=== PATIENT | male | born 1960 | race Hispanic/Latino ===

== ENCOUNTER 2020-03-30 09:57 | Inpatient (IN) | payer MEDICARE, OTHER ==
[~2020-03-30 09:57] MED LIST: Iopamidol-370 76% 500 ML 1 ML ONE
[2020-03-30] MEDS ORDERED: Ondansetron PF 4 MG/2 ML Vial ONE (10:01)
--- NOTE | 2020-03-30 10:13 | CT ---
CT HEAD WITHOUT IV CONTRAST COMPARISON: 05/21/2019 HISTORY: Level 1 stroke. Slurred speech. TECHNIQUE: Axial CT imaging at 5 mm intervals from vertex through skull base without contrast FINDINGS: Left frontal calvarial craniotomy defect is again seen, and there is a stable area of encephalomalaci a involving the left frontal lobe with ex vacuo dilatation of the anterior body of the left lateral ventricle. There is decreased attenuation in the periventricular white matter which is nonspecific bu t likely reflective of chronic small vessel ischemic changes. There is mild cerebral volume loss. The ventricular system is normal in size, shape, and position for the degree of sulcal atrophy. There is no evidence of an acute cortical infarction, hemorrhage, mass effect, or midline shift. Skull base has a normal CT appearance. Visualized paranasal sinuses are clear. Osseous structures appear intact. Stable small partially calcified nodule in the scalp soft tissues p osterior lateral region at the vertex is again noted. [place] image demonstrates postoperative changes of the upper cervical spine. CT head is stable compared to prior exam. IMPRESSION: 1. No acute intracranial abnormality demonstrated. 2. Stable chronic changes. 3. Above findings discussed with Dr. Abarca in the emergency department on 03/30/2020 at 1008 hours.
[2020-03-30 10:21] LABS: #Basophils 0.1 thou/uL (0.0-0.2); #Eosinphils 0.5 thou/uL (0.0-0.7); #Lymphocytes 2.5 thou/uL (1.20-3.40); #Monocytes 0.5 thou/uL (0.11-0.59); #Neutrophils 4.9 thou/uL (1.40-6.50); %Basophils 0.9 % (0.0-1.0); %Eosinophils 5.9 % (0.0-10.0); %Lymphocytes 29.9 % (21.0-51.0); %Monocytes 5.5 % (0.0-10.0); %Neutrophils 57.8 % (42.0-75.0); Hemoglobin 12.2 g/dL (14.0-18.0); Mean Corpuscular HGB CONC 32.7 g/dL (32.0-36.0); Mean Corpuscular Volume 94.6 fL (78.0-98.0); Mean Platelet Volume 7.7 fL (7.4-10.4); Platelet Count 319 thou/uL (130-400); RBC Distribution Width 12.7 % (11.5-14.5); Red Blood Cell (RBC) Count 3.95 mill/uL (4.70-6.10); White Blood Cell (WBC) Count 8.4 thou/uL (4.8-10.8)
[2020-03-30] MEDS ORDERED: Promethazine HCl 25 MG/ML VIAL ONE (10:27)
[2020-03-30 10:33] LABS: INR-International Normal Ratio 1.2; PTT 38.7 sec (22.9-36.1); Prothrombin Time 15.3 sec (12.0-14.7)
[2020-03-30 10:36] LABS: ALT (SGPT) 14 U/L (8-55); AST (SGOT) 15 U/L (5-34); Albumin 3.9 g/dL (3.4-4.8); Alkaline Phosphatase 66 U/L (40-110); Anion Gap 13 mmol/L (10-20); BUN (Urea Nitrogen) 33 mg/dL (8.4-25.7); Bilirubin, Total 0.3 mg/dL (0.2-1.2); Calc. Creatinine Clearance 0 mL/min (70-130); Calcium 8.9 mg/dL (7.8-10.44); Carbon Dioxide 25 mmol/L (23-31); Chloride 101 mmol/L (98-107); Estimated GFR-MDRD 73; Globulin 3.6 g/dL (2.4-3.5); Glucose 112 mg/dL (80-115); Potassium 3.8 mmol/L (3.5-5.1); Protein, Total 7.5 g/dL (5.8-8.1); Sodium 135 mmol/L (136-145)
--- NOTE | 2020-03-30 10:41 | CT ---
EXAM: CT angiogram head and neck with IV contrast and 3-D reconstructions PROVIDED CLINICAL HISTORY: Slurred speech COMPARISON: None FINDINGS: There is a normal arrangement of great vessels at the aortic arch which are patent. The innominate ar cornelio and bilateral subclavian arteries as well as bilateral common carotid arteries are patent. The bilateral internal carotid arteries are patent. There is a prominent kink involving the cervical righ t internal carotid artery. The bilateral vertebral arteries appear grossly patent; although, there is limited evaluation due to artifact at the level of the cervical vertebral arteries. The more dista l vertebral arteries are patent. The basilar artery and each posterior cerebral artery are patent. There is a type origin of the left posterior cerebral artery. The bilateral anterior cerebral as well as middle cerebral arteries are patent. There does appear to be mild atherosclerotic irregularity in the region of the distal M1 segment right middle cerebral artery. No significant focal stenosis or branch occlusion is seen. No intracranial aneurysm is appreciated on this exam. The heart is mildly enlarged. There is atelectasis seen in the upper lung zones bilaterally. The thyroid gland, bilateral parotid glands and submandibular glands demonstrate a normal CT appearan ce. There are postoperative changes at the C3-4 level with anterior plate and screws present. There is ca lcification of the anterior longitudinal ligament of the cervical as well as the thoracic spine. IMPRESSION: 1. No focal stenosis or branch occlusion is seen involving the [place] of [place] or vertebrobasilar sy stem. 2. Patent bilateral internal carotid arteries. There is a prominent kink present within the cervical right ICA. 3. Mild cardiomegaly. 4. Above findings discussed with Dr. Abarca in the emergency department on 03/30/2020 at 1036 hours.
--- NOTE | 2020-03-30 10:45 | RAD ---
XR Chest 1 View Portable HISTORY: Slurred speech COMPARISON: 05/21/2019 FINDINGS: The heart size is at upper limits of normal. The lungs are well expanded without focal area s of consolidation, pneumothorax or pleural effusions. IMPRESSION: No radiographic evidence of acute cardiopulmonary process.
[2020-03-30 10:57] LABS: Acetaminophen Less than 6.0 mcg/mL (10.0-30.0); Alcohol Less than 10 mg/dL (Less than 10); Salicylate Less than 8.0 mg/dL (15.0-30.0)
[2020-03-30 11:18] LABS: Bilirubin Negative (Negative); Blood, Urine Negative (Negative); Clarity Clear (Clear); Glucose, Urine (Dipstick) Normal (Negative); Ketone, Urine Negative (Negative); Leukocyte Negative Leu/uL (Negative); Nitrite Negative (Negative); Protein, Urine (Dipstick) 10 mg/dL (Neg-Trace); Specific Gravity, Urine 1.021 (1.002-1.036); Urobilinogen Normal mg/dL (Less than 2); pH, Urine 6.5 (5.0-9.0)
[2020-03-30 11:42] LABS: Amphetamine Not Detected (NotDetected); Barbiturates Screen Not Detected (NotDetected); Benzodiazepine Screen Not Detected (NotDetected); Cocaine Metabolite Screen Not Detected (NotDetected); Medtox Control Line Valid? VALID (VALID); Medtox Reader # READER 1; Methadone Not Detected (NotDetected); Methamphetamine Not Detected (NotDetected); Opiate Screen Not Detected (NotDetected); Oxycodone Screen Not Detected (NotDetected); Phencyclidine (PCP) Not Detected (NotDetected); THC/Cannabinoid Screen Not Detected (NotDetected); Tricyclic Screen Not Detected (NotDetected)
--- NOTE | 2020-03-30 12:10 | PDOC.HHP ---
Hospitalist HPI - History of Present Illness Facial weakness History of Present Illness: This is a 60-year-old male patient with a history of unspecified thrombosis on Eliquis, hypothyroidism, stroke, brain abscess paraplegic and nonambulatory, who was noted in his [place] [facility] facility this morning to have facial weakness and slurred speech. According to ambulance note, the patient was alert and oriented x4 with no slurred speech or tremors. At presentation he was also thought to be alert and oriented x4 however had nausea and vomiting and was given ondansetron to no avail and subsequently given Phenergan. At the time of my evaluation he was pretty drowsy he would wake up when when called and then go back to sleep. He however follows some commands. At presentation his blood pressure was 191/105, pulse 88, respiratory 21 saturation 96 on room air initial temperature was His labs showed negative drug screen, unremarkable UA, BMP showed mild hyponatremia of 135, chest x-ray showed no radiographical evidence of acute cardiopulmonary process, CT scan of the head showed no acute intracranial process, stable chronic changes and CT angiogram showed no intracranial aneurysms artery stenosis. However a prominent kink involving the right internal carotid was noted. At presentation he received Phenergan and Zofran for nausea and vomiting. 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 - Family History Other Family History: Lives at [facility] - Social History Living Situation: Shelter Other Social History: Unable to obtain - Exam General - other findings: Patient in bed, very drowsy at arousable. Eye - other findings: Pupils symmetrical reactive to light. Heart: RRR, no murmur, no rubs Respiratory: no wheezes, no rales, no ronchi Extremities: no cyanosis, no clubbing, no edema Extremities - other findings: Does not move lower limbs on instruction. Moves upper limbs Neurological - other findings: Unable to comprehensively assess given patient's altered state Hospitalist Results - Labs Result Diagrams: 03/30/20 10:01 03/30/20 10:01 Lab results: WBC 8.4 thou/uL (4.8-10.8) 03/30/20 10:01 Hgb 12.2 g/dL (14.0-18.0) L 03/30/20 10:01 Hct 37.4 % (42.0-52.0) L 03/30/20 10:01 MCV 94.6 fL (78.0-98.0) 03/30/20 10:01 Plt Count 319 thou/uL (130-400) 03/30/20 10:01 Neutrophils % 57.8 % (42.0-75.0) 03/30/20 10:01 Sodium 135 mmol/L (136-145) L 03/30/20 10:01 Potassium 3.8 mmol/L (3.5-5.1) 03/30/20 10:01 Chloride 101 mmol/L (98-107) 03/30/20 10:01 Carbon Dioxide 25 mmol/L (23-31) 03/30/20 10:01 BUN 33 mg/dL (8.4-25.7) H 03/30/20 10:01 Creatinine 1.04 mg/dL (0.7-1.3) 03/30/20 10:01 Glucose 112 mg/dL (80-115) 03/30/20 10:01 Calcium 8.9 mg/dL (7.8-10.44) 03/30/20 10:01 Total Bilirubin 0.3 mg/dL (0.2-1.2) 03/30/20 10:01 AST 15 U/L (5-34) 03/30/20 10:01 ALT 14 U/L (8-55) 03/30/20 10:01 Alkaline Phosphatase 66 U/L (40-110) 03/30/20 10:01 Troponin I Less than 0.010 ng/mL (< 0.028) 03/30/20 10:01 Serum Total Protein 7.5 g/dL (5.8-8.1) 03/30/20 10:01 Albumin 3.9 g/dL (3.4-4.8) 03/30/20 10:01 Urine Ketones Negative mg/dL (Negative) 03/30/20 10:55 Urine Blood Negative (Negative) 03/30/20 10:55 Urine Nitrite Negative (Negative) 03/30/20 10:55 Ur Leukocyte Esterase Negative Sim/uL (Negative) 03/30/20 10:55 Hospitalist H&P A/P - Plan Plan: This a 60-year-old male patient here for history of stroke with bilateral lower limb paresis, thrombosis on Eliquis who was sent from his [place] [facility] on account of facial weakness and slurring of speech this morning. Possible stroke/TIA CT negative for any bleeding Received aspirin 324 prior to arrival Negative CT angiogram MRI Telemetry monitoring, fall precautions Neurology consult Mild hyponatremia Monitor BMP VT prophylaxisLovenox CODE STATUSfull code
[2020-03-30] MEDS ORDERED: Lorazepam 2 MG/ML VIAL SLOW IVP PRN (13:35)
[2020-03-30] MEDS ORDERED: Ondansetron PF 4 MG/2 ML Vial IVP PRN (13:41)
[2020-03-30 14:18] LABS: Hemoglobin A1c 5.3 % (4.0-6.0)
[2020-03-30 14:32] LABS: Cardiac Risk 2.7 (Less than 4.5)
[2020-03-30 14:54] LABS: Thyroid Stimulating Hormone 1.3358 uIU/mL (0.35-4.94)
[2020-03-30 16:26] VITALS: BMI 36.3
[2020-03-30] MEDS ORDERED: Enoxaparin Sodium 40 MG/0.4 ML SYRINGE SC SCH (21:00)
[2020-03-31 04:53] LABS: #Basophils 0.1 thou/uL (0.0-0.2); #Eosinphils 0.4 thou/uL (0.0-0.7); #Lymphocytes 2.3 thou/uL (1.20-3.40); #Monocytes 0.3 thou/uL (0.11-0.59); #Neutrophils 3.8 thou/uL (1.40-6.50); %Basophils 1.1 % (0.0-1.0); %Eosinophils 5.7 % (0.0-10.0); %Lymphocytes 33.5 % (21.0-51.0); %Monocytes 4.3 % (0.0-10.0); %Neutrophils 55.5 % (42.0-75.0); Hemoglobin 11.1 g/dL (14.0-18.0); Mean Corpuscular HGB CONC 33.5 g/dL (32.0-36.0); Mean Corpuscular Hemoglobin 31.7 pg (27.0-31.0); Mean Corpuscular Volume 94.6 fL (78.0-98.0); Mean Platelet Volume 7.8 fL (7.4-10.4); Platelet Count 308 thou/uL (130-400); RBC Distribution Width 12.5 % (11.5-14.5); White Blood Cell (WBC) Count 6.9 thou/uL (4.8-10.8)
[2020-03-31 05:11] LABS: Anion Gap 13 mmol/L (10-20); BUN (Urea Nitrogen) 27 mg/dL (8.4-25.7); Calc. Creatinine Clearance 139 mL/min (70-130); Calcium 8.4 mg/dL (7.8-10.44); Carbon Dioxide 24 mmol/L (23-31); Chloride 103 mmol/L (98-107); Estimated GFR-MDRD Greater than 90; Glucose 99 mg/dL (80-115); Potassium 4.3 mmol/L (3.5-5.1); Sodium 136 mmol/L (136-145)
--- NOTE | 2020-03-31 09:12 | MRI ---
MRI brain noncontrast HISTORY: CVA. Multiple sclerosis. COMPARISON: 06/25/2018. FINDINGS: Associated with a left upper posterior frontal gyrus, immediately posterior to the area of encephalomalacia is an oval 0.8 cm focus of restricted diffusion with corresponding defect on ADC mapping images. No other acute infarct or hemorrhage evident. The area of prominent encephalomalacia at the upper left frontal lobe in area of prior surgery is oth erwise stable. Ventricular prominence is similar in appearance to prior study. Widespread areas of gliosis, consistent with advanced multiple sclerosis are stable. Small plaque at the left side of the chidi is unchanged. Visualized paranasal sinuses remain well-aerated. IMPRESSION : Tiny focus of acute ischemia/infarct in the left upper frontal lobe adjacent to large area of encepha lomalacia. Advanced multiple sclerosis changes and other chronic-type findings are otherwise stable.
[2020-03-31] MEDS: Aspirin 81 mg Enteric Coated Tablet PO SCH (09:36)
--- NOTE | 2020-03-31 11:57 | PDOC.HOSPP ---
- Subjective Encounter Date: 03/31/20 Encounter Time: 11:59 Subjective: No overnight events. Patient reports his symptoms of R arm and R facial weakness have resolved, although he does still endorse mild tingling to R arm. Denies any new or worsening deficits. No changes in vision, dizziness. Denies chest pain, SOB, abdominal pain. Patient resting comfortably in bed with no concerns or complaints. Chart and medications reviewed. - Objective Vital Signs & Weight: Vital Signs (12 hours) Temp Pulse Pulse Pulse Resp BP BP 03/31/20 11:23 98.4 F 74 20 03/31/20 10:38 78 72 192/93 H 186/92 H 03/31/20 07:35 97.6 F 77 20 03/31/20 04:00 98.3 F 80 18 03/31/20 00:05 97.9 F 69 20 BP Pulse Ox 03/31/20 11:23 173/94 H 95 03/31/20 10:38 03/31/20 07:35 192/93 H 94 L 03/31/20 04:00 149/80 H 94 L 03/31/20 00:05 147/71 H 93 L Weight Weight 232 lb 8 oz I&O: 03/30/20 03/31/20 04/01/20 06:59 06:59 06:59 Intake Total 520 Output Total 500 Balance 20 Result Diagrams: 03/31/20 04:39 03/31/20 04:39 Hospitalist ROS - Review of Systems Constitutional: denies: fever, chills, sweats Eyes: denies: vision change ENT: denies: throat pain Respiratory: denies: cough, shortness of breath Cardiovascular: denies: chest pain, palpitations, light headedness Gastrointestinal: denies: nausea, vomiting, abdominal pain Genitourinary: denies: dysuria Musculoskeletal: denies: neck pain Skin: denies: rash, lesions Neurological: reports: numbness. denies: weakness - Medication Medications: Active Medications Generic Name Dose Route Start Last Admin Trade Name Freq PRN Reason Stop Dose Admin Aspirin 81 mg 03/31/20 09:00 03/31/20 09:36 Aspirin 81 Mg Enteric Coated Tablet PO 81 mg DAILY MARYELLEN Administration Enoxaparin Sodium 40 mg 03/30/20 21:00 03/30/20 22:30 Enoxaparin Sodium 40 Mg/0.4 Ml Syringe SC 40 mg 2100 MARYELLEN Administration - Exam General Appearance: NAD, awake alert Eye: PERRL, anicteric sclera ENT: normocephalic atraumatic Neck: supple, symmetric, no JVD, no thyromegaly, no lymphadenopathy, no carotid bruit Heart: RRR, no murmur, no gallops, no rubs, normal peripheral pulses Respiratory: CTAB, no wheezes, no rales, no ronchi, normal chest expansion, no tachypnea, normal percussion Gastrointestinal: soft, non-tender, non-distended, normal bowel sounds, no palpable masses, no hepatomegaly, no splenomegaly, no bruit Extremities - other findings: trace edema bilaterally Skin: normal turgor, no lesions, no rashes Neurological: cranial nerve grossly intact, no weakness, no new deficit Musculoskeletal: normal tone, normal strength Psychiatric: normal affect, normal behavior, A&O x 3 Hosp A/P - Plan Mr. Smith is a 60-year-old male with a past medical history of CVA, brain abscess, multiple sclerosis, hypothyroidism, who is nonambulatory at baseline brought in from intermediate for right-sided facial droop, upper extremity weakness, and garbled speech found to have small CVA on MRI. CVA Patient presented with right sided weakness that is now resolved. Initial CT scan showed no evidence of acute CVA. MRI showed a tiny focus of acute ischemia/infarct in the left upper frontal lobe adjacent to a large area of encephalomalacia. MRI also showed advanced MS changes that were stable and chronic. Patient symptoms have greatly improved with no residual weakness. Patient does still report mild tingling to the right upper extremity. Patient started on aspirin and statin. Patient is on Eliquis, and patient is unsure if this is for veins in his leg or atrial fibrillation. Neurology consulted, recommendations appreciated. Plan ASA, statin Hold Eliquis due to concern for hemorrhagic conversion PT/OT eval -Permissive hypertension -Telemetry, q4 neuro checks -Echo pending -Neurology consulted, reccs appreciated Hyperlipidemia: Hx of hyperlipidemia on Pravastatin, zetia, and fenofibrate. Will increase pravastatin to atorvastatin for high-intensity statin therapy. Obtain lipid panel. Hypertension: On home verapamil and clonidine. Will hold in setting of permissive HTN. Multiple Slcerosis Hx of MS with paraplegia. MRI showed advanced MS changes chronic and stable from prior imaging. Patient on baclofen, tegretol, diclofenac, gabapentin for symptom control. Patient reports he follows with a local neurologist, unsure of the name. Hypothyroidism Continue home levothyroxine. TSH wnl. DVT prophylaxis: SCDs FULL CODE Case discussed with attending physician Dr. Corado who is in agreement with assessment and plan.
--- NOTE | 2020-03-31 12:54 | CON ---
NEUROLOGY CONSULTATION DATE OF CONSULTATION: 03/31/2020 REASON FOR CONSULTATION: Facial weakness. HISTORY OF PRESENT ILLNESS: Mr. Smith is a 60-year-old male with medical history significant for hypercoagulable state, on Eliquis; hypothyroidism; prior stroke; brain abscess; and paraplegia, who presented to the hospital with an episode of facial weakness with slurred speech. According to the patient, he was brought to the emergency room, and at that time, he was alert and oriented x4, but had nausea and vomiting, so he was given Phenergan and Zofran. Head CT was done which did not reveal any acute intracranial pathology. CT angiogram of the head and neck also did not reveal any aneurysms or hemodynamically significant stenosis. He was also given aspirin 325 mg in his [facility] prior to arrival and admitted to the stroke floor for further evaluation. The patient denies headache, new-onset weakness, problems with swallowing, chest pain, abdominal pain, recent illness, or recent exposure to COVID. - Review of Systems Constitutional: denies: fever, chills, sweats Eyes: denies: vision change ENT: denies: throat pain Respiratory: denies: cough, shortness of breath Cardiovascular: denies: chest pain, palpitations, light headedness Gastrointestinal: denies: nausea, vomiting, abdominal pain Genitourinary: denies: dysuria Musculoskeletal: denies: neck pain Skin: denies: rash, lesions Neurological: reports: numbness. denies: weakness PAST MEDICAL HISTORY: 1. Hypothyroidism. 2. Prior stroke. 3. Brain abscess. 4. Paraplegia. PAST SURGICAL HISTORY: Not significant. SOCIAL HISTORY: The patient lives at [facility]. Denies smoking, alcohol, or illegal drug use. FAMILY HISTORY: Not significant. ALLERGIES: CHARLOTTE INHIBITORS Vital Signs & Weight: Vital Signs (12 hours) Temp Pulse Pulse Pulse Resp BP BP 03/31/20 11:23 98.4 F 74 20 03/31/20 10:38 78 72 192/93 H 186/92 H 03/31/20 07:35 97.6 F 77 20 03/31/20 04:00 98.3 F 80 18 03/31/20 00:05 97.9 F 69 20 BP Pulse Ox 03/31/20 11:23 173/94 H 95 03/31/20 10:38 03/31/20 07:35 192/93 H 94 L 10/27/20 04:00 149/80 H 94 L 03/31/20 00:05 147/71 H 93 L Weight Weight 232 lb 8 oz I&O: 03/30/20 03/31/20 04/01/20 06:59 06:59 06:59 Intake Total 520 Output Total 500 Balance 20 Active Medications Generic Name Dose Route Start Last Admin Trade Name Toq PRN Reason Stop Dose Admin Aspirin 81 mg 03/31/20 09:00 03/31/20 09:36 Aspirin 81 Mg Enteric Coated Tablet PO 81 mg DAILY MARYELLEN Administration Enoxaparin Sodium 40 mg 03/30/20 21:00 03/30/20 22:30 Enoxaparin Sodium 40 Mg/0.4 Ml Syringe SC 40 mg 2100 MARYELLEN Administration PHYSICAL EXAMINATION: General Appearance: NAD, awake alert Eye: PERRL, anicteric sclera ENT: normocephalic atraumatic Neck: supple, symmetric, no JVD, no thyromegaly, no lymphadenopathy, no carotid bruit Heart: RRR, no murmur, no gallops, no rubs, normal peripheral pulses Respiratory: CTAB, no wheezes, no rales, no ronchi, normal chest expansion, no tachypnea, normal percussion Gastrointestinal: soft, non-tender, non-distended, normal bowel sounds, no palpable masses, no hepatomegaly, no splenomegaly, no bruit Extremities - other findings: trace edema bilaterally Skin: normal turgor, no lesions, no rashes Neurological: Mental Status: The patient is alert and oriented to person, place, and time. He does have dysarthria. Cranial nerves 2 through 12 intact except 7, mild right facial droop, and 10 dysarthria. Motor: Muscle tone and bulk are normal in the upper extremities. Moving the upper extremities equally and symmetrically. Cerebellar: Finger-nose testing intact. Gait: Deferred upper extremities, lower extremity. Unable to move the lower extremities. LABORATORY DATA: I reviewed the labs that were significant for hemoglobin of 12.2, hematocrit of 37.4, and hyponatremia 135. Head CT reviewed which was negative for bleed or stroke. Head CT angiogram was negative. Lab results: WBC 8.4 thou/uL (4.8-10.8) 03/30/20 10:01 Hgb 12.2 g/dL (14.0-18.0) L 03/30/20 10:01 Hct 37.4 % (42.0-52.0) L 03/30/20 10:01 MCV 94.6 fL (78.0-98.0) 03/30/20 10:01 Plt Count 319 thou/uL (130-400) 03/30/20 10:01 Neutrophils % 57.8 % (42.0-75.0) 03/30/20 10:01 Sodium 135 mmol/L (136-145) L 03/30/20 10:01 Potassium 3.8 mmol/L (3.5-5.1) 03/30/20 10:01 Chloride 101 mmol/L (98-107) 03/30/20 10:01 Carbon Dioxide 25 mmol/L (23-31) 03/30/20 10:01 BUN 33 mg/dL (8.4-25.7) H 03/30/20 10:01 Creatinine 1.04 mg/dL (0.7-1.3) 03/30/20 10:01 Glucose 112 mg/dL (80-115) 03/30/20 10:01 Calcium 8.9 mg/dL (7.8-10.44) 03/30/20 10:01 Total Bilirubin 0.3 mg/dL (0.2-1.2) 03/30/20 10:01 AST 15 U/L (5-34) 03/30/20 10:01 ALT 14 U/L (8-55) 03/30/20 10:01 Alkaline Phosphatase 66 U/L (40-110) 03/30/20 10:01 Troponin I Less than 0.010 ng/mL (< 0.028) 03/30/20 10:01 Serum Total Protein 7.5 g/dL (5.8-8.1) 03/30/20 10:01 Albumin 3.9 g/dL (3.4-4.8) 03/30/20 10:01 Urine Ketones Negative mg/dL (Negative) 03/30/20 10:55 Urine Blood Negative (Negative) 03/30/20 10:55 Urine Nitrite Negative (Negative) 03/30/20 10:55 Ur Leukocyte Esterase Negative Sim/uL (Negative) 03/30/20 10:55 ASSESSMENT AND PLAN: Mr. Kareem Smith is a 60-year-old male with history of prior stroke with bilateral lower limb paresis, thrombosis, on Eliquis, presented from the emergency room with facial weakness and slurred speech which is almost resolved. Head CT reviewed which was negative for acute intracranial pathology. CT of the head and neck did not reveal any hemodynamically significant stenosis. MRI of the brain reviewed which was consistent with small tiny infarct in the left upper frontal lobes. 2D echo pending. Telemetry. Neuro checks every 4 hours. Continue aspirin and high-intensity statin. Continue Eliquis for thrombotic state. PT/OT. Continue home medications. Permissive control of blood pressure at this time. Strict control of blood glucose. Check hemoglobin A1c, fasting lipid panel, and TSH. PT/OT/Speech. Continue medical management per primary team. We will continue to follow. Thank you for the consult. Job ID: [id number] SHU
--- NOTE | 2020-03-31 13:40 | CT ---
EXAM: CT angiogram head and neck with IV contrast and 3-D reconstructions PROVIDED CLINICAL HISTORY: Slurred speech COMPARISON: None FINDINGS: There is a normal arrangement of great vessels at the aortic arch which are patent. The innominate ar cornelio and bilateral subclavian arteries as well as bilateral common carotid arteries are patent. The bilateral internal carotid arteries are patent. There is a prominent kink involving the cervical righ t internal carotid artery. The bilateral vertebral arteries appear grossly patent; although, there is limited evaluation due to artifact at the level of the cervical vertebral arteries. The more dista l vertebral arteries are patent. The basilar artery and each posterior cerebral artery are patent. There is a type origin of the left posterior cerebral artery. The bilateral anterior cerebral as well as middle cerebral arteries are patent. There does appear to be mild atherosclerotic irregularity in the region of the distal M1 segment right middle cerebral artery. No significant focal stenosis or branch occlusion is seen. No intracranial aneurysm is appreciated on this exam. The heart is mildly enlarged. There is atelectasis seen in the upper lung zones bilaterally. The thyroid gland, bilateral parotid glands and submandibular glands demonstrate a normal CT appearan ce. There are postoperative changes at the C3-4 level with anterior plate and screws present. There is ca lcification of the anterior longitudinal ligament of the cervical as well as the thoracic spine. IMPRESSION: 1. No focal stenosis or branch occlusion is seen involving the [place] or vertebrobasilar sy stem. 2. Patent bilateral internal carotid arteries. There is a prominent kink present within the cervical right ICA. 3. Mild cardiomegaly. 4. Above findings discussed with Dr. Abarca in the emergency department on 03/30/2020 at 1036 hours. Transcribed Date/Time: 03/31/2020 1:39 PM
[2020-03-31] MEDS: Diclofenac Sodium 50 MG DR TAB PO SCH ×2 (15:18→20:31)
[2020-03-31] MEDS: cloNIDine 0.2 MG TAB PO SCH ×2 (15:19→20:32)
[2020-03-31] MEDS: Gabapentin 300 MG CAP PO SCH (17:31)
[2020-03-31] MEDS: OXcarbazepine 300 MG TAB PO SCH (20:31)
[2020-03-31] MEDS: Escitalopram Oxalate 10 mg Tablet PO SCH (20:32)
[2020-03-31] MEDS: Atorvastatin Calcium 40 MG TAB PO SCH (20:33)
[2020-03-31] MEDS: Fenofibrate Nanocrystallized 145 MG TAB PO SCH (20:33)
[2020-03-31] MEDS: carBAMazepine 200 MG TAB PO SCH (20:33)
[2020-03-31] MEDS: Baclofen 10 MG TAB PO SCH (20:33)
[2020-03-31] MEDS ORDERED: Apixaban 5 MG TAB PO SCH (21:00)
[2020-04-01] MEDS: Gabapentin 300 MG CAP PO SCH ×4 (03:58→17:15)
[2020-04-01 05:11] LABS: #Basophils 0.1 thou/uL (0.0-0.2); #Eosinphils 0.4 thou/uL (0.0-0.7); #Lymphocytes 2.4 thou/uL (1.20-3.40); #Monocytes 0.4 thou/uL (0.11-0.59); #Neutrophils 3.4 thou/uL (1.40-6.50); %Basophils 0.9 % (0.0-1.0); %Eosinophils 5.3 % (0.0-10.0); %Lymphocytes 36.4 % (21.0-51.0); %Neutrophils 51.3 % (42.0-75.0); Hemoglobin 12.3 g/dL (14.0-18.0); Mean Corpuscular HGB CONC 32.8 g/dL (32.0-36.0); Mean Corpuscular Hemoglobin 30.9 pg (27.0-31.0); Mean Corpuscular Volume 94.2 fL (78.0-98.0); Mean Platelet Volume 7.5 fL (7.4-10.4); Platelet Count 320 thou/uL (130-400); RBC Distribution Width 12.4 % (11.5-14.5); Red Blood Cell (RBC) Count 3.97 mill/uL (4.70-6.10); White Blood Cell (WBC) Count 6.7 thou/uL (4.8-10.8)
[2020-04-01 05:39] LABS: Anion Gap 13 mmol/L (10-20); BUN (Urea Nitrogen) 24 mg/dL (8.4-25.7); Calc. Creatinine Clearance 122 mL/min (70-130); Calcium 8.8 mg/dL (7.8-10.44); Carbon Dioxide 27 mmol/L (23-31); Chloride 100 mmol/L (98-107); Estimated GFR-MDRD 81; Glucose 103 mg/dL (80-115); Potassium 4.2 mmol/L (3.5-5.1); Sodium 136 mmol/L (136-145)
[2020-04-01] MEDS ORDERED: Levothyroxine Sodium 25 MCG TAB PO SCH (06:00)
[2020-04-01] MEDS: Diclofenac Sodium 50 MG DR TAB PO SCH ×3 (08:34→20:32)
[2020-04-01] MEDS: OXcarbazepine 300 MG TAB PO SCH ×2 (08:34→20:32)
[2020-04-01] MEDS: cloNIDine 0.2 MG TAB PO SCH ×3 (08:35→20:31)
[2020-04-01] MEDS: Aspirin 81 mg Enteric Coated Tablet PO SCH (08:36)
[2020-04-01] MEDS: Baclofen 10 MG TAB PO SCH ×2 (08:36→20:32)
[2020-04-01] MEDS: carBAMazepine 200 MG TAB PO SCH ×2 (08:36→20:32)
--- NOTE | 2020-04-01 12:26 | PDOC.NEUPN ---
- Subjective Encounter Date: 04/01/20 Subjective: Patient feels better today and is alert and oriented x3. - Objective Vital Signs & Weight: Vital Signs (12 hours) Temp Pulse Resp BP BP Pulse Ox 04/01/20 11:30 93 L 04/01/20 11:27 97.9 F 63 15 140/66 04/01/20 08:34 98.8 F 65 17 185/91 H 04/01/20 08:00 95 04/01/20 04:00 97.4 F L 65 18 159/82 H 94 L Weight Admit Weight 232 lb 8 oz Weight 232 lb 8 oz I&O: 03/31/20 04/01/20 04/02/20 06:59 06:59 06:59 Intake Total 520 614 Output Total 500 750 500 Balance 20 -136 -500 Result Diagrams: 04/01/20 04:48 04/01/20 04:48 Radiology Reviewed by me: Yes EKG Reviewed by me: Yes ROS - Review of Systems Constitutional: denies: fever, chills, sweats, weakness, malaise, other Eyes: denies: pain, vision change, conjunctivae inflammation, eyelid inflammation, redness, other ENT: denies: ear pain, ear discharge, nose pain, nose discharge, nose congestion, mouth pain, mouth swelling, throat pain, throat swelling, other Respiratory: denies: cough, dry, shortness of breath, hemoptysis, SOB with excertion, pleuritic pain, sputum, wheezing, other Neurological: reports: weakness, numbness, incoordination. denies: change in speech, confusion, seizures, other All Systems: All other systems reviewed; all pertinent +/- noted in HPI/Subj - Medication Medications: Active Medications Generic Name Dose Route Start Last Admin Trade Name Freq PRN Reason Stop Dose Admin Aspirin 81 mg 03/31/20 09:00 04/01/20 08:36 Aspirin 81 Mg Enteric Coated Tablet PO 81 mg DAILY MARYELLEN Administration Atorvastatin Calcium 40 mg 03/31/20 21:00 03/31/20 20:33 Atorvastatin Calcium 40 Mg Tab PO 40 mg HS MARYELLEN Administration Baclofen 10 mg 03/31/20 21:00 04/01/20 08:36 Baclofen 10 Mg Tab PO 10 mg BID MARYELLEN Administration Carbamazepine 400 mg 03/31/20 21:00 04/01/20 08:36 Carbamazepine 200 Mg Tab PO 400 mg BID MARYELLEN Administration Clonidine 0.2 mg 03/31/20 15:00 04/01/20 08:35 Clonidine 0.2 Mg Tab PO 0.2 mg TID MARYELLEN Administration Diclofenac Sodium 50 mg 03/31/20 15:00 04/01/20 08:34 Diclofenac Sodium [address] Tab PO 50 mg TID MARYELLEN Administration Escitalopram Oxalate 10 mg 03/31/20 21:00 03/31/20 20:32 Escitalopram Oxalate 10 Mg Tablet PO 10 mg HS MARYELLEN Administration Fenofibrate 145 mg 03/31/20 21:00 03/31/20 20:33 Fenofibrate Nanocrystallized 145 Mg Tab PO 145 mg HS MARYELLEN Administration Gabapentin 600 mg 03/31/20 18:00 04/01/20 11:27 Gabapentin 300 Mg Cap PO 600 mg Q6HR MARYELLEN Administration Levothyroxine Sodium 25 mcg 04/01/20 06:00 04/01/20 05:51 Levothyroxine Sodium 25 Mcg Tab PO 25 mcg 0600 MARYELLEN Administration Ondansetron HCl 4 mg 03/30/20 13:41 03/31/20 17:26 Ondansetron Pf 4 Mg/2 Ml Vial IVP 4 mg Q6H PRN Administration Nausea/Vomiting Oxcarbazepine 300 mg 03/31/20 21:00 04/01/20 08:34 Oxcarbazepine 300 Mg Tab PO 300 mg BID MARYELLEN Administration Sodium Chloride 10 ml 03/31/20 21:00 04/01/20 08:37 Flush - Normal Saline 10 Ml Syringe IVF 10 ml Q12HR MARYELLEN Administration - Exam General Appearance: awake alert Eye: PERRL ENT: normocephalic atraumatic Neck: supple Respiratory: CTAB Cardiovascular: RRR Gastrointestinal: soft Extremities: no cyanosis Skin: normal turgor Neurological: no new deficit Musculoskeletal: no muscle wasting PSYCH: normal affect, normal behavior, A&O x 3 Results - Labs Result Diagrams: 04/01/20 04:48 04/01/20 04:48 Lab results: WBC 6.7 thou/uL (4.8-10.8) 04/01/20 04:48 Hgb 12.3 g/dL (14.0-18.0) L 04/01/20 04:48 Hct 37.4 % (42.0-52.0) L 04/01/20 04:48 MCV 94.2 fL (78.0-98.0) 04/01/20 04:48 Plt Count 320 thou/uL (130-400) 04/01/20 04:48 Neutrophils % 51.3 % (42.0-75.0) 04/01/20 04:48 Sodium 136 mmol/L (136-145) 04/01/20 04:48 Potassium 4.2 mmol/L (3.5-5.1) 04/01/20 04:48 Chloride 100 mmol/L (98-107) 04/01/20 04:48 Carbon Dioxide 27 mmol/L (23-31) 04/01/20 04:48 BUN 24 mg/dL (8.4-25.7) 04/01/20 04:48 Creatinine 0.95 mg/dL (0.7-1.3) 04/01/20 04:48 Glucose 103 mg/dL (80-115) 04/01/20 04:48 Calcium 8.8 mg/dL (7.8-10.44) 04/01/20 04:48 Total Bilirubin 0.3 mg/dL (0.2-1.2) 03/30/20 10:01 AST 15 U/L (5-34) 03/30/20 10:01 ALT 14 U/L (8-55) 03/30/20 10:01 Alkaline Phosphatase 66 U/L (40-110) 03/30/20 10:01 Troponin I Less than 0.010 ng/mL (< 0.028) 03/30/20 10:01 Serum Total Protein 7.5 g/dL (5.8-8.1) 03/30/20 10:01 Albumin 3.9 g/dL (3.4-4.8) 03/30/20 10:01 Urine Ketones Negative mg/dL (Negative) 03/30/20 10:55 Urine Blood Negative (Negative) 03/30/20 10:55 Urine Nitrite Negative (Negative) 03/30/20 10:55 Ur Leukocyte Esterase Negative Sim/uL (Negative) 03/30/20 10:55 - Radiology Interpretation MRI - head Status: image reviewed by me, report reviewed by me Additional Comment: Tiny focus of acute infarct seen in the left frontal upper lobe. PN A/P - Plan Daily Plan: PT/OT, speech therapy, DVT proph w/SCDs 60-year-old male with history significant for hypercoagulable state on Eliquis, prior history of stroke, hypertension presented with facial weakness which is now improved. MRI of brain consistent with tiny acute infarction in the left frontal region. MRI brain reviewed which was consistent with a tiny acute infarction in the left frontal upper lobe adjacent to prior encephalomalacia from prior stroke. CTA of the head and neck did not reveal hemodynamically significant stenosis. 2D echo completed results pending. Neurochecks every 4 hours. Continue home medications. Strict control of blood glucose and blood pressure. PT/OT/speech Telemetry DVT prophylaxis Continue aspirin high intensity statin for secondary stroke prevention. Continue medical management per primary team. Plan discussed in detail with the patient and during MDR rounds.
--- NOTE | 2020-04-01 15:22 | PDOC.DS.DS ---
Provider - Provider Date of Admission: 03/31/20 18:22 Date of Discharge: 04/01/20 Admitting Provider: Ian Corado MD Primary Care Physician: NO PCP PROVIDER Course - Hospital Course Hospital Course: Discharge diagnosis: 1. Acute ischemic stroke 2. Hypertensive urgency Condition of patient on the day of discharge: Stable. Assess Mr. Smith on the day of discharge. He denies any chest pain or shortness of breath. Vital signs are stable. S1 and S2 are heard, regular. Lungs are clear to auscultation bilaterally. Hospital course: Patient is a pleasant 60-year-old gentleman who was admitted to the hospital on March 30, 2020 for hypertensive urgency and suspected stroke. He was seen by neurology service. MRI of the brain showed tiny focus of acute ischemia/infarct in the left upper frontal lobe adjacent to a large area of encephalomalacia. His aspirin dose was decreased to 10 mg daily given the risk of bleeding since he is also on apixaban. 2D echocardiogram showed left ventricle ejection fraction of 55 to 60%. He is being discharged back to his senior care for further management. Many thanks for allowing me to participate in your patient's care. Please feel free to contact me with any questions or concerns. Discharge destination: [facility] Total amount of time spent coordinating this discharge: 32 minutes Resuscitation Status: 03/30/20 12:54 Resuscitation Status Routine Resuscitation Status: FULL: Full Resuscitation - Labs Lab Results: 04/01/20 04:48 04/01/20 04:48 Abnormal Lab Results - Last 48 hrs 03/31/20 04:39: BUN 27 H 03/31/20 04:39: RBC 3.50 L, Hgb 11.1 L, Hct 33.1 L, MCH 31.7 H, Basophils % 1.1 H 04/01/20 04:48: RBC 3.97 L, Hgb 12.3 L, Hct 37.4 L Microbiology - Entire Visit 03/30/20 10:55 Urine Straight Catheter Urine Culture - Final NO GROWTH AT 48 HOURS - Physical Exam Vitals: Vital Signs (12 hours) Temp Pulse Resp BP BP Pulse Ox 04/01/20 11:30 93 L 04/01/20 11:27 97.9 F 63 15 140/66 04/01/20 08:34 98.8 F 65 17 185/91 H 04/01/20 08:00 95 04/01/20 04:00 97.4 F L 65 18 159/82 H 94 L Weight Admit Weight 232 lb 8 oz Weight 232 lb 8 oz Physical Exam: The patient was seen and examined on the day of discharge. Plan - Discharge Medications Home Medications: Medication Instructions Recorded Confirmed Type Acetaminophen [Tylenol] 1,000 mg PO Q6HR PRN 03/30/20 03/30/20 History Albuterol Sulfate [Proair HFA] 2 puff INH Q6HR PRN 03/30/20 03/30/20 History Apixaban [Eliquis] 5 mg PO BID 03/30/20 03/30/20 History Artificial Tears [Tears Naturale 1 drop EA EYE QID 03/30/20 03/30/20 History Free] Azelastine HCl [Azelastine HCl 1 drop EA EYE BID 03/30/20 03/30/20 History 0.05% Ophth Soln] Baclofen 10 mg PO BID 03/30/20 03/30/[address] [Voltaren] 50 mg PO TID 03/30/20 03/30/20 History Docusate Calcium 1 cap PO DAILY 03/30/20 03/30/20 History Dutasteride [Avodart] 0.5 mg PO DAILY 03/30/20 03/30/20 History Escitalopram Oxalate [Lexapro] 1 tab PO HS 03/30/20 03/30/20 History Eslicarbazepine Acetate [Aptiom] 1 tab PO DAILY 03/30/20 03/30/20 History Ezetimibe [Zetia] 10 mg PO HS 03/30/20 03/30/20 History Fenofibrate Nanocrystallized 145 mg PO HS 03/30/20 03/30/20 History [Tricor] Gabapentin 1 tab PO Q6HR 03/30/20 03/30/20 History HYDROcodone/Acetaminophen [[place] 1 tab PO Q6HR PRN 03/30/20 03/30/20 History 5-325 Tablet] Lacosamide [Vimpat] 100 mg PO BID 03/30/20 03/30/20 History Lactobacillus [Floranex] 1 tab PO BID 03/30/20 03/30/20 History Levothyroxine Sodium 25 mcg PO DAILY 03/30/20 03/30/20 History Meclizine HCl 1 tab PO Q8HR 03/30/20 03/30/20 History Meclizine HCl [Medi-Meclizine] 25 mg PO Q8HR PRN 03/30/20 03/30/20 History Multivitamin 1 tab PO DAILY 03/30/20 03/30/20 History Nystatin [Nystatin Powder] 1 applic TOP BID 03/30/20 03/30/20 History OXcarbazepine [Trileptal] 300 mg PO BID 03/30/20 03/30/20 History Petrolatum,White [Dermaphor 1 applic TOP Q24HR 03/30/20 03/30/20 History Ointment] Pravastatin Sodium 1 tab PO HS 03/30/20 03/30/20 History Restasis [Restasis Ophth Drops] 1 drop EA EYE BID 03/30/20 03/30/20 History Simethicone [Mi-Acid] 1 tab PO Q6HR PRN 03/30/20 03/30/20 History Verapamil HCl [Verapamil HCl ER] 1 cap PO HS 03/30/20 03/30/20 History carBAMazepine [Tegretol] 2 tab PO BID 03/30/20 03/30/20 History cloNIDine [Catapres] 0.2 mg PO TID 03/30/20 03/30/20 History Aspirin [Ecotrin Low Strength] 81 mg PO DAILY tab 04/01/20 Rx Allergies: CHARLOTTE Inhibitors Allergy (Verified 03/31/20 07:57) - Discharge Instructions Activity:: Activity as Tolerated Nourishment:: Heart Healthy Diet - Follow up Plan Referrals: [facility] [Outside] PROVIDER,NO PCP [Primary Care Provider] - 1 Day Disposition: HOME Quality - Care Measures CORE MEASURES:: Stroke/TIA - Stroke/TIA Did you prescribe antithrombotic therapy?: Yes Did you prescribe anticoagulant for A Fib/Flutter?: No Specify reason for no DC anticoagulant: Treatment not indicated Did you prescribe a statin medication?: Yes
[2020-04-01 20:31] VITALS: BP 161/83; TEMP 98.1
[2020-04-01] MEDS: Atorvastatin Calcium 40 MG TAB PO SCH (20:31)
[2020-04-01] MEDS: Escitalopram Oxalate 10 mg Tablet PO SCH (20:32)
[2020-04-01] MEDS: Fenofibrate Nanocrystallized 145 MG TAB PO SCH (20:32)
[2020-04-01] MEDS ORDERED: Apixaban 5 MG TAB PO SCH (21:00)
== END 2020-04-01 20:41 | disposition home or self-care (01) | DRG 65 ==
LOC: ERS 09:57 → ERHOLD 12:14 → 2SE 16:06 → OBSVTOIN 03-31 18:22
PROVIDERS: ADMIT Student in an Organized Health Care Education/Training Program; ATTEND Internal Medicine
DX: I63.9 Cerebral infarction, unspecified (principal); E87.1 Hypo-osmolality and hyponatremia; G81.91 Hemiplegia, unspecified affecting right dominant side; G82.20 Paraplegia, unspecified; R47.81 Slurred speech; G35 Multiple sclerosis; I10 Essential (primary) hypertension; I16.0 Hypertensive urgency; E78.5 Hyperlipidemia, unspecified; R29.810 Facial weakness; E03.9 Hypothyroidism, unspecified; Z79.01 Long term (current) use of anticoagulants; Z86.73 Personal history of transient ischemic attack (TIA), and cerebral infarction without residual deficits; Z88.8 Allergy status to other drugs, medicaments and biological substances
CPT/HCPCS: 36415; 36416; 51701; 70450; 70496; 70498; 70551; 71045; 80048; 80053; 80061; 80306; 80307; 81003; 82607; 83036; 84443; 84484; 85025; 85610; 85730; 86850; 86900; 86901; 87086; 93005; 93306; 96372; 96374; 96375; 96376; G0378; J1650; J2405; J2550; Q9967

== ENCOUNTER 2020-04-27 09:55 | Emergency (ER) | payer MEDICARE, OTHER ==
[2020-04-27] MEDS ORDERED: Dexamethasone 10 MG/ML VIAL ONE (11:18)
[2020-04-27 11:22] LABS: #Lymphocytes 1.1 thou/uL (1.20-3.40); #Monocytes 0.6 thou/uL (0.11-0.59); #Neutrophils 4.1 thou/uL (1.40-6.50); %Basophils 0.3 % (0.0-1.0); %Eosinophils 0.4 % (0.0-10.0); %Lymphocytes 18.8 % (21.0-51.0); %Monocytes 10.5 % (0.0-10.0); %Neutrophils 70.1 % (42.0-75.0); Hemoglobin 12.2 g/dL (14.0-18.0); Mean Corpuscular HGB CONC 32.7 g/dL (32.0-36.0); Mean Corpuscular Hemoglobin 30.4 pg (27.0-31.0); Mean Corpuscular Volume 93.1 fL (78.0-98.0); Mean Platelet Volume 6.7 fL (7.4-10.4); Platelet Count 287 thou/uL (130-400); RBC Distribution Width 12.4 % (11.5-14.5); White Blood Cell (WBC) Count 5.8 thou/uL (4.8-10.8)
--- NOTE | 2020-04-27 11:32 | RAD ---
XR Chest 1 View Portable HISTORY: Nausea and vomiting. Altered mental status COMPARISON: 03/30/2020 FINDINGS: The heart size is at upper limits of normal. The lungs are without focal areas of consolida tion, pneumothorax or pleural effusions. IMPRESSION: No radiographic evidence of acute cardiopulmonary process.
[2020-04-27 11:56] LABS: ALT (SGPT) 36 U/L (8-55); AST (SGOT) 46 U/L (5-34); Albumin 3.8 g/dL (3.4-4.8); Alkaline Phosphatase 83 U/L (40-110); Anion Gap 15 mmol/L (10-20); BUN (Urea Nitrogen) 37 mg/dL (8.4-25.7); Bilirubin, Total 0.4 mg/dL (0.2-1.2); Calc. Creatinine Clearance 0 mL/min (70-130); Calcium 8.4 mg/dL (7.8-10.44); Carbon Dioxide 24 mmol/L (23-31); Chloride 93 mmol/L (98-107); Estimated GFR-MDRD 60; Globulin 3.8 g/dL (2.4-3.5); Glucose 84 mg/dL (80-115); Potassium 4.3 mmol/L (3.5-5.1); Protein, Total 7.6 g/dL (5.8-8.1); Sodium 128 mmol/L (136-145)
[2020-04-27] MEDS ORDERED: Ondansetron ODT 4 MG TAB ONE (12:47)
== END 2020-04-27 18:20 ==
LOC: ERS 09:55
DX: U07.1 COVID-19 (principal); I10 Essential (primary) hypertension; E03.9 Hypothyroidism, unspecified; M19.90 Unspecified osteoarthritis, unspecified site; E78.00 Pure hypercholesterolemia, unspecified; N40.0 Benign prostatic hyperplasia without lower urinary tract symptoms; Z79.82 Long term (current) use of aspirin; Z79.01 Long term (current) use of anticoagulants; Z79.899 Other long term (current) drug therapy
CPT/HCPCS: 36415; 71045; 80053; 83605; 83880; 85025; 93005; J1100; Q0162

== ENCOUNTER 2020-04-29 19:43 | Emergency (ER) | payer MEDICARE, OTHER ==
[2020-04-29 20:25] LABS: #Eosinphils 0.1 thou/uL (0.0-0.7); #Lymphocytes 1.2 thou/uL (1.20-3.40); #Monocytes 0.4 thou/uL (0.11-0.59); #Neutrophils 3.1 thou/uL (1.40-6.50); %Basophils 0.3 % (0.0-1.0); %Eosinophils 1.1 % (0.0-10.0); %Lymphocytes 25.5 % (21.0-51.0); %Monocytes 7.8 % (0.0-10.0); %Neutrophils 65.3 % (42.0-75.0); Hemoglobin 11.9 g/dL (14.0-18.0); Mean Corpuscular HGB CONC 32.4 g/dL (32.0-36.0); Mean Corpuscular Hemoglobin 30.1 pg (27.0-31.0); Mean Corpuscular Volume 92.9 fL (78.0-98.0); Mean Platelet Volume 6.3 fL (7.4-10.4); Platelet Count 354 thou/uL (130-400); RBC Distribution Width 12.3 % (11.5-14.5); Red Blood Cell (RBC) Count 3.97 mill/uL (4.70-6.10); White Blood Cell (WBC) Count 4.8 thou/uL (4.8-10.8)
[2020-04-29 20:45] LABS: ALT (SGPT) 33 U/L (8-55); AST (SGOT) 32 U/L (5-34); Albumin 3.9 g/dL (3.4-4.8); Alkaline Phosphatase 85 U/L (40-110); Anion Gap 17 mmol/L (10-20); BUN (Urea Nitrogen) 42 mg/dL (8.4-25.7); Bilirubin, Total 0.5 mg/dL (0.2-1.2); Calc. Creatinine Clearance 0 mL/min (70-130); Calcium 8.6 mg/dL (7.8-10.44); Carbon Dioxide 25 mmol/L (23-31); Chloride 95 mmol/L (98-107); Estimated GFR-MDRD 68; Globulin 3.9 g/dL (2.4-3.5); Glucose 88 mg/dL (80-115); Lipase 32 U/L (8-78); Potassium 4.1 mmol/L (3.5-5.1); Protein, Total 7.8 g/dL (5.8-8.1); Sodium 133 mmol/L (136-145)
--- NOTE | 2020-04-29 21:07 | RAD ---
Portable frontal chest radiograph: 04/29/2020 COMPARISON: 04/27/2020 HISTORY: Vomiting FINDINGS: Heart and mediastinal contours are stable. No focal consolidation or alveolar edema. Subtle mild hazy density in the right perihilar region. Mild linear density in the left base suggesting mild scar or volume loss. IMPRESSION: No significant interval change. Please see above discussion.
[2020-04-29] MEDS ORDERED: Promethazine HCl 25 MG/ML VIAL ONE (21:17)
[2020-04-29 22:23] LABS: Bilirubin Negative (Negative); Blood, Urine Negative (Negative); Clarity Clear (Clear); Glucose, Urine (Dipstick) Normal (Negative); Ketone, Urine Trace mg/dL (Negative); Leukocyte Negative Leu/uL (Negative); Nitrite Negative (Negative); Protein, Urine (Dipstick) 50 mg/dL (Neg-Trace); RBC/HPF 0-3 HPF (0-3); Specific Gravity, Urine 1.029 (1.002-1.036); Squamous Epithelial None Seen HPF (0-3); Urobilinogen Normal mg/dL (Less than 2); WBC/HPF 0-3 HPF (0-3); pH, Urine 5.5 (5.0-9.0)
[2020-04-29 22:24] LABS: Bacteria/HPF 1+ HPF (None Seen)
== END 2020-04-29 23:19 ==
LOC: ERS 19:43
DX: U07.1 COVID-19 (principal); I10 Essential (primary) hypertension; E03.9 Hypothyroidism, unspecified; M19.90 Unspecified osteoarthritis, unspecified site; E78.00 Pure hypercholesterolemia, unspecified; N40.0 Benign prostatic hyperplasia without lower urinary tract symptoms; Z79.82 Long term (current) use of aspirin; Z79.01 Long term (current) use of anticoagulants; Z79.899 Other long term (current) drug therapy
CPT/HCPCS: 36415; 51701; 71045; 80053; 81003; 81015; 83690; 85025; 93005; 96361; 96365; 96366; J2550

== ENCOUNTER 2020-05-14 03:55 | Emergency (ER) | payer MEDICARE, OTHER ==
[2020-05-14 04:43] LABS: #Eosinphils 0.3 thou/uL (0.0-0.7); #Lymphocytes 1.5 thou/uL (1.20-3.40); #Monocytes 0.3 thou/uL (0.11-0.59); #Neutrophils 7.9 thou/uL (1.40-6.50); %Basophils 0.3 % (0.0-1.0); %Lymphocytes 14.6 % (21.0-51.0); %Monocytes 2.8 % (0.0-10.0); %Neutrophils 79.2 % (42.0-75.0); Hemoglobin 10.8 g/dL (14.0-18.0); Mean Corpuscular HGB CONC 33.6 g/dL (32.0-36.0); Mean Corpuscular Hemoglobin 31.4 pg (27.0-31.0); Mean Corpuscular Volume 93.3 fL (78.0-98.0); Mean Platelet Volume 6.7 fL (7.4-10.4); Platelet Count 313 thou/uL (130-400); RBC Distribution Width 13.3 % (11.5-14.5); Red Blood Cell (RBC) Count 3.44 mill/uL (4.70-6.10); White Blood Cell (WBC) Count 9.9 thou/uL (4.8-10.8)
[2020-05-14] MEDS ORDERED: cefTRIAXone\\ROCEPHIN 2 GM VIAL ONE (04:51)
[2020-05-14] MEDS ORDERED: Vancomycin 1 GM/200 ML BAG ONE (04:51)
[2020-05-14 05:03] LABS: ALT (SGPT) 26 U/L (8-55); AST (SGOT) 20 U/L (5-34); Albumin 3.7 g/dL (3.4-4.8); Alkaline Phosphatase 63 U/L (40-110); Anion Gap 16 mmol/L (10-20); BUN (Urea Nitrogen) 36 mg/dL (8.4-25.7); Bilirubin, Total 0.4 mg/dL (0.2-1.2); Calc. Creatinine Clearance 0 mL/min (70-130); Calcium 8.7 mg/dL (7.8-10.44); Carbon Dioxide 24 mmol/L (23-31); Chloride 97 mmol/L (98-107); Glucose 91 mg/dL (80-115); Potassium 4.3 mmol/L (3.5-5.1); Protein, Total 6.7 g/dL (5.8-8.1); Sodium 133 mmol/L (136-145)
[2020-05-14 05:07] LABS: Bacteria/HPF 3+ HPF (None Seen); Bilirubin Negative (Negative); Blood, Urine 2+ (Negative); Clarity Turbid (Clear); Glucose, Urine (Dipstick) Normal (Negative); Ketone, Urine Negative (Negative); Leukocyte 500 Leu/uL (Negative); Nitrite 2+ (Negative); Protein, Urine (Dipstick) 30 mg/dL (Neg-Trace); Specific Gravity, Urine 1.019 (1.002-1.036); Squamous Epithelial 0-3 HPF (0-3); Urobilinogen Normal mg/dL (Less than 2); WBC/HPF Greater than 50 HPF (0-3); pH, Urine 7.5 (5.0-9.0)
[2020-05-14] MEDS ORDERED: Ibuprofen 800 MG TAB ONE (05:32)
--- NOTE | 2020-05-14 08:49 | RAD ---
PORTABLE CHEST: HISTORY: Cough and fever. COMPARISON: 04/29/2020 exam. FINDINGS: Heart size appears borderline for AP technique. Mediastinal structures are unremarkable. No definit vito infiltrative process is seen. IMPRESSION: No active intrathoracic disease. POS: SEVEN
== END 2020-05-14 10:20 | disposition home or self-care (01) ==
LOC: ERS 03:55
DX: N39.0 Urinary tract infection, site not specified (principal); I10 Essential (primary) hypertension; G35 Multiple sclerosis; E03.9 Hypothyroidism, unspecified; E78.00 Pure hypercholesterolemia, unspecified; M19.90 Unspecified osteoarthritis, unspecified site; N40.0 Benign prostatic hyperplasia without lower urinary tract symptoms; Z79.01 Long term (current) use of anticoagulants; Z79.899 Other long term (current) drug therapy; Z79.02 Long term (current) use of antithrombotics/antiplatelets
CPT/HCPCS: 51701; 71045; 80053; 81003; 81015; 83605; 85025; 87040; 87077; 87086; 87149; 87186; 93005; 96365; 96367; J0696; J3370

== ENCOUNTER 2020-06-01 17:56 | Inpatient (IN) | payer MEDICARE, OTHER ==
[2020-06-01] MEDS ORDERED: Labetalol HCl 100 MG/20 ML VIAL ONE (18:20)
[2020-06-01] MEDS ORDERED: Metoclopramide HCl 10 MG/2 ML VIAL ONE (18:20)
[2020-06-01 18:50] LABS: #Monocytes 0.6 thou/uL (0.11-0.59); #Neutrophils 11.2 thou/uL (1.40-6.50); %Basophils 0.3 % (0.0-1.0); %Eosinophils 0.4 % (0.0-10.0); %Lymphocytes 7.5 % (21.0-51.0); %Monocytes 4.3 % (0.0-10.0); %Neutrophils 87.6 % (42.0-75.0); Hemoglobin 12.1 g/dL (14.0-18.0); Mean Corpuscular HGB CONC 32.2 g/dL (32.0-36.0); Mean Corpuscular Hemoglobin 29.9 pg (27.0-31.0); Mean Corpuscular Volume 92.9 fL (78.0-98.0); Mean Platelet Volume 6.4 fL (7.4-10.4); Platelet Count 553 thou/uL (130-400); RBC Distribution Width 13.3 % (11.5-14.5); Red Blood Cell (RBC) Count 4.06 mill/uL (4.70-6.10); White Blood Cell (WBC) Count 12.8 thou/uL (4.8-10.8)
[2020-06-01 19:10] LABS: ALT (SGPT) 21 U/L (8-55); AST (SGOT) 25 U/L (5-34); Albumin 4.1 g/dL (3.4-4.8); Alkaline Phosphatase 63 U/L (40-110); Anion Gap 15 mmol/L (10-20); BUN (Urea Nitrogen) 16 mg/dL (8.4-25.7); Bilirubin, Total 0.4 mg/dL (0.2-1.2); Calc. Creatinine Clearance 0 mL/min (70-130); Calcium 8.4 mg/dL (7.8-10.44); Carbon Dioxide 26 mmol/L (23-31); Chloride 92 mmol/L (98-107); Globulin 3.8 g/dL (2.4-3.5); Glucose 128 mg/dL (80-115); Protein, Total 7.9 g/dL (5.8-8.1); Sodium 129 mmol/L (136-145)
--- NOTE | 2020-06-01 19:14 | RAD ---
PORTABLE UPRIGHT FRONTAL CHEST RADIOGRAPH: Date: 06-01-2020 Comparison: 05-14-2020 History: Hypertension, fever. FINDINGS: Heart and mediastinal contours are stable. Stable degenerative change of bilateral shoulders. No pneu mothorax or pleural fluid. No focal consolidation or alveolar edema. IMPRESSION: No acute findings. POS: HAYDEE
[2020-06-01 19:42] LABS: CKMB 9.1 ng/mL (0-6.6)
--- NOTE | 2020-06-01 20:16 | CT ---
CT BRAIN: Date: 06-01-2020 PROVIDED CLINICAL HISTORY: Headache Comparison: 03-30-2020 FINDINGS: The ventricular system appears normal in size and morphology. There is no evidence for intracranial h emorrhage or mass effect. Encephalomalacia involving the left frontoparietal region with overlying sk ull defect demonstrated, similar to prior. Chronic microvascular ischemic changes involving the cereb ral white matter redemonstrated. The extracranial soft tissues and osseous structures demonstrate no acute findings. IMPRESSION: No evidence for intracranial hemorrhage or mass effect. POS: JOSE
[2020-06-01] MEDS ORDERED: niCARdipine 20MG In NaCl 20 MG/200 ML BAG ONE (21:04)
[2020-06-01] MEDS ORDERED: Acetaminophen 650 MG Suppository PR PRN (21:32)
[2020-06-01] MEDS ORDERED: Ondansetron ODT 4 MG TAB PO PRN (21:32)
[2020-06-01] MEDS ORDERED: Acetaminophen 325 MG TAB PO PRN (21:32)
[2020-06-01] MEDS ORDERED: Ondansetron PF 4 MG/2 ML Vial IVP PRN (21:32)
--- NOTE | 2020-06-01 21:35 | PDOC.HHP ---
Hospitalist HPI - History of Present Illness headache History of Present Illness: Case of an 60-year-old male patient with a pmhx of unspecified thrombosis on Eliquis, hypothyroidism, hx of cva, hx of brain abscess, MS, paraplegic and nonambulatory, who is a [facility] resident who comes to hospital due to headache. patient refers he was on his usual state of health until today when he started with headaches nausea and vomiting. at evaluation it was noted that patient had his blood pressure at 191/105, was diaphoretic and complaining of sob. patient was started on cardem drip after given labetalol and hydralazine w/o significant improvement of his symptoms. troponin was elevated at 0.5 for which hospitalist was called for further evaluation and management. Hospitalist ROS - Review of Systems All other systems reviewed; all pertinent +/- noted in HPI/Subj Hospitalist History - Past Surgical History Other Surgical History: carpal tunnel - Family History Family History: reports: no pertinent history - Social History Alcohol: reports: None Drugs: reports: none Living Situation: Alone - Exam General Appearance: NAD, awake alert Eye: PERRL, anicteric sclera ENT: normocephalic atraumatic, no oropharyngeal lesions Neck: supple, symmetric, no JVD Heart: RRR, no murmur, no gallops Respiratory: CTAB, no wheezes, no rales Gastrointestinal: soft, non-tender, non-distended Extremities: no cyanosis, no clubbing Skin: normal turgor Neurological: cranial nerve grossly intact, normal sensation to touch Musculoskeletal: normal tone, normal strength Psychiatric: normal affect, normal behavior, A&O x 3 Hospitalist Results - Labs Result Diagrams: 06/01/20 18:39 06/01/20 18:39 Lab results: WBC 12.8 thou/uL (4.8-10.8) H 06/01/20 18:39 Hgb 12.1 g/dL (14.0-18.0) L 06/01/20 18:39 Hct 37.8 % (42.0-52.0) L 06/01/20 18:39 MCV 92.9 fL (78.0-98.0) 06/01/20 18:39 Plt Count 553 thou/uL (130-400) H 06/01/20 18:39 Neutrophils % 87.6 % (42.0-75.0) H 06/01/20 18:39 Sodium 129 mmol/L (136-145) L 06/01/20 18:39 Potassium 4.0 mmol/L (3.5-5.1) 06/01/20 18:39 Chloride 92 mmol/L (98-107) L 06/01/20 18:39 Carbon Dioxide 26 mmol/L (23-31) 06/01/20 18:39 BUN 16 mg/dL (8.4-25.7) 06/01/20 18:39 Creatinine 0.69 mg/dL (0.7-1.3) L 06/01/20 18:39 Glucose 128 mg/dL (80-115) H 06/01/20 18:39 Calcium 8.4 mg/dL (7.8-10.44) 06/01/20 18:39 Total Bilirubin 0.4 mg/dL (0.2-1.2) 06/01/20 18:39 AST 25 U/L (5-34) 06/01/20 18:39 ALT 21 U/L (8-55) 06/01/20 18:39 Alkaline Phosphatase 63 U/L (40-110) 06/01/20 18:39 CK-MB (CK-2) 9.1 ng/mL (0-6.6) H* 06/01/20 18:39 Troponin I 0.538 ng/mL (< 0.028) H* 06/01/20 18:39 B-Natriuretic Peptide 165.9 pg/mL (0-100) H 06/01/20 18:39 Serum Total Protein 7.9 g/dL (5.8-8.1) 06/01/20 18:39 Albumin 4.1 g/dL (3.4-4.8) 06/01/20 18:39 Hospitalist H&P A/P - Problem (1) Hypertensive emergency Code(s): I16.1 - HYPERTENSIVE EMERGENCY Status: Acute (2) NSTEMI (non-ST elevated myocardial infarction) Code(s): I21.4 - NON-ST ELEVATION (NSTEMI) MYOCARDIAL INFARCTION Status: Acute (3) History of CVA (cerebrovascular accident) Code(s): Z86.73 - PRSNL HX OF TIA (TIA), AND CEREB INFRC W/O RESID DEFICITS Status: Acute (4) Hypothyroid Code(s): E03.9 - HYPOTHYROIDISM, UNSPECIFIED Status: Acute (5) Seizures Code(s): R56.9 - UNSPECIFIED CONVULSIONS Status: Acute (6) Nausea & vomiting Code(s): R11.2 - NAUSEA WITH VOMITING, UNSPECIFIED Status: Acute - Plan Plan: 60y/o male with the stated pmhx who presents to hospital due to hypertensive urgency with heart as target hypertensive urgency - was 190/125s - started on cardene drip - elevated troponin at 0.5 - continue home meds and optimize accordingly - head ct negative nstemi - likely type in the setting of hypertensive urgency - on AC w elliquis - on verapamil, allergic to acei, continue asa statin - 2d echo - cardiology evaluation hx of cva - continue antiplatelet and statin for secondary prevention seizure - continue home meds n/v - symptomatic tx prn
[2020-06-01 22:32] LABS: Troponin I 0.756 ng/mL (< 0.028)
[2020-06-01 23:42] LABS: SARS-CoV-2 NAA Rapid Test DETECTED (NotDetected)
[2020-06-02] MEDS ORDERED: NIFEdipine XL 30 MG TAB PO SCH (00:45)
[2020-06-02] MEDS ORDERED: NIFEdipine XL 30 MG TAB ONE ×2 (00:57→06:35)
[2020-06-02] MEDS: Gabapentin 300 MG CAP PO SCH ×4 (01:04→21:56)
[2020-06-02] MEDS: Sodium Chloride 0.9% 1,000 ML IV SCH (01:06)
[2020-06-02 01:41] LABS: Troponin I 0.798 ng/mL (< 0.028)
[2020-06-02] MEDS ORDERED: niCARdipine 20MG In NaCl 20 MG/200 ML BAG ONE (01:45)
[2020-06-02] MEDS ORDERED: Ondansetron PF 4 MG/2 ML Vial ONE ×2 (06:05→06:08)
[2020-06-02] MEDS: niCARdipine 25 MG in Sodium Chloride 0.9% 250 ML 240 ML IVPB SCH (06:33)
[2020-06-02] MEDS: NIFEdipine XL 30 MG TAB PO SCH ×2 (06:44→09:00)
[2020-06-02] MEDS: hydrALAZINE 20 MG/ML VIAL SLOW IVP PRN (06:57)
[2020-06-02 07:18] LABS: ALT (SGPT) 20 U/L (8-55); AST (SGOT) 27 U/L (5-34); Albumin 4.1 g/dL (3.4-4.8); Alkaline Phosphatase 60 U/L (40-110); Anion Gap 15 mmol/L (10-20); BUN (Urea Nitrogen) 19 mg/dL (8.4-25.7); Bilirubin, Total 0.4 mg/dL (0.2-1.2); Calc. Creatinine Clearance 147 mL/min (70-130); Calcium 8.5 mg/dL (7.8-10.44); Carbon Dioxide 26 mmol/L (23-31); Chloride 92 mmol/L (98-107); Globulin 3.9 g/dL (2.4-3.5); Glucose 118 mg/dL (80-115); Potassium 4.2 mmol/L (3.5-5.1); Sodium 129 mmol/L (136-145)
[2020-06-02 07:24] LABS: Hemoglobin 12.7 g/dL (14.0-18.0); Mean Corpuscular HGB CONC 32.8 g/dL (32.0-36.0); Mean Corpuscular Hemoglobin 30.6 pg (27.0-31.0); Mean Corpuscular Volume 93.2 fL (78.0-98.0); Mean Platelet Volume 6.4 fL (7.4-10.4); Platelet Count 522 thou/uL (130-400); RBC Distribution Width 13.5 % (11.5-14.5); Red Blood Cell (RBC) Count 4.16 mill/uL (4.70-6.10); White Blood Cell (WBC) Count 11.4 thou/uL (4.8-10.8)
--- NOTE | 2020-06-02 08:27 | PDOC.HOSPP ---
- Subjective Encounter Date: 06/02/20 Encounter Time: 10:30 Subjective: Patient with worsening chest pain this morning 5/10, BP controlled on Cardene. Nitropaste given and pain down to 1/10. Troponin elevated, now stabilized. Dr. Loza saw the patient and plans to medically manage. Switched to nitro drip and Lovenox from Eliquis. Patient testing positive for Covid. Had symptomatic Covid about 3-4 months ago by patient report. - Objective Vital Signs & Weight: Vital Signs (12 hours) Pulse BP 06/02/20 06:57 120 H 169/94 H 06/02/20 06:44 120 H 169/94 H 06/02/20 01:07 120 H 142/85 H Weight Weight 208 lb 15.971 oz Result Diagrams: 06/02/20 06:52 06/02/20 06:52 Hospitalist ROS - Review of Systems Constitutional: denies: fever, chills Respiratory: denies: cough, shortness of breath Cardiovascular: reports: chest pain. denies: palpitations Gastrointestinal: denies: nausea, vomiting, abdominal pain - Medication Medications: Active Medications Generic Name Dose Route Start Last Admin Trade Name Freq PRN Reason Stop Dose Admin Gabapentin 600 mg 06/01/20 23:59 06/02/20 06:53 Gabapentin 300 Mg Cap PO 600 mg Q6HR MARYELLEN Administration Hydralazine HCl 10 mg 06/02/20 06:25 06/02/20 06:57 Hydralazine 20 Mg/Ml Vial SLOW IVP 10 mg Q4H PRN Administration SBP Greater Than 170 Sodium Chloride 1,000 mls @ 50 mls/hr 06/01/20 23:30 06/02/20 01:06 Normal Saline 0.9% IV 1,000 mls .Q20H MARYELLEN Administration Nicardipine HCl 25 mg/ Sodium 250 mls @ 0 mls/hr 06/02/20 06:30 06/02/20 06:33 Chloride IVPB 250 mls INF MARYELLEN Administration Protocol Titrate Nifedipine 30 mg 06/02/20 09:00 06/02/20 06:44 Nifedipine Xl 30 Mg Tab PO 30 mg DAILY MARYELLEN Administration Ondansetron HCl 4 mg 06/01/20 21:32 06/02/20 06:14 Ondansetron Pf 4 Mg/2 Ml Vial IVP 4 mg Q6H PRN Administration Nausea/Vomiting - Exam General Appearance: NAD, awake alert ENT: moist mucosa Heart: RRR, no murmur, no gallops, no rubs Respiratory: CTAB, no wheezes, no rales, no ronchi Gastrointestinal: soft, non-tender, non-distended, normal bowel sounds Extremities: no edema Psychiatric: normal affect, normal behavior, A&O x 3 Hosp A/P - Plan (1) Hypertensive emergency Code(s): I16.1 - HYPERTENSIVE EMERGENCY Status: Acute (2) NSTEMI (non-ST elevated myocardial infarction) Code(s): I21.4 - NON-ST ELEVATION (NSTEMI) MYOCARDIAL INFARCTION Status: Acute (3) History of CVA (cerebrovascular accident) Code(s): Z86.73 - PRSNL HX OF TIA (TIA), AND CEREB INFRC W/O RESID DEFICITS Status: Acute (4) Hypothyroid Code(s): E03.9 - HYPOTHYROIDISM, UNSPECIFIED Status: Acute (5) Seizures Code(s): R56.9 - UNSPECIFIED CONVULSIONS Status: Acute (6) Nausea & vomiting Code(s): R11.2 - NAUSEA WITH VOMITING, UNSPECIFIED Status: Acute (7) COVID-19 positive Suspect that this is a false negative as very unlikely to get repeat infection. Doubt this is contributing to his current symptoms. - Plan Plan: 60y/o male with the stated pmhx who presents to hospital due to hypertensive urgency with heart as target hypertensive urgency - was 190/125s - started on cardene drip- wean off as able on the nitro drip - elevated troponin peak at 0.79, now down to 0.5 - continue home meds and optimize accordingly - head ct negative nstemi - likely type in the setting of hypertensive urgency - chest pain this morning, adding nitro drip - on AC w elliquis- switched to Lovenox - on verapamil, allergic to acei, continue asa statin - 2d echo - cardiology evaluation- appreciate Dr. Loza's assistance hx of cva - continue antiplatelet and statin for secondary prevention seizure - continue home meds n/v - symptomatic tx prn COVID-19 positive test, suspect false positive vs. mild reinfection
[2020-06-02] MEDS ORDERED: Nitroglycerin 2% Ointment 1 INCH/1 GM Packet ONE ×2 (08:28→21:45)
[2020-06-02] MEDS ORDERED: Nitroglycerin 2% Ointment 1 INCH/1 GM Packet TOP SCH (08:30)
[2020-06-02] MEDS ORDERED: Apixaban 5 MG TAB PO SCH (09:00)
[2020-06-02] MEDS ORDERED: Nitroglycerin 50 MG/250 ML BOT 250 ML ONE (09:26)
[2020-06-02 09:37] LABS: Band 6 % (5-11); Eosinophils 1 % (0-10); Lymphocytes 17 % (21-51); Monocytes 4 % (0-10); Neutrophil 70 % (42-75); Platelet Morphology Comment Appears Increased
[2020-06-02 09:38] LABS: MDiff Complete? YES
[2020-06-02] MEDS: Nitroglycerin 2% Ointment 1 INCH/1 GM Packet TOP SCH ×2 (09:40→22:02)
[2020-06-02] MEDS: Nitroglycerin 50 MG/250 ML BOT 250 ML IVPB SCH ×2 (09:40→10:37)
[2020-06-02] MEDS ORDERED: Morphine 4 MG/ML VIAL ONE (10:47)
[2020-06-02] MEDS ORDERED: Enoxaparin Sodium 100 MG/ML SYRINGE ONE ×2 (10:47→21:45)
[2020-06-02] MEDS: Levothyroxine Sodium 25 MCG TAB PO SCH (10:50)
[2020-06-02] MEDS: Morphine 4 MG/ML VIAL SLOW IVP PRN (10:53)
[2020-06-02 10:54] LABS: CKMB 8.9 ng/mL (0-6.6); Critical Call Chem Troponin I 0; Troponin I 0.552 ng/mL (< 0.028)
[2020-06-02] MEDS ORDERED: Morphine 4 MG/ML VIAL SLOW IVP SCH (11:00)
[2020-06-02] MEDS ORDERED: Enoxaparin Sodium 100 MG/ML SYRINGE SC SCH (11:00)
--- NOTE | 2020-06-02 12:12 | CON ---
DATE OF CONSULTATION: 06/02/2020 REASON FOR CONSULTATION: Elevated troponin. HISTORY OF PRESENT ILLNESS: Mr. Smith is a 60-year-old gentleman, who recently presented to the emergency room with nausea and vomiting. He also had mild chest pain. During my visit, his chest pain was estimated at 1/10. He did appear comfortable. He has no previous history of underlying coronary artery disease. Peak troponin was 0.798. It is not downtrending with troponin of 0.5. EKG appears to be within normal limits with no acute ST-T wave changes or ST-T wave changes suggesting ischemia. PAST MEDICAL HISTORY: Previous CVA, hypothyroidism, brain abscess, and paraplegia. SOCIAL HISTORY: The patient currently resides in [facility]. No current tobacco or alcohol use. FAMILY HISTORY: Negative for CAD. ALLERGIES: CHARLOTTE INHIBITOR THERAPY. MEDICATIONS: Include; 1. Aspirin. 2. Catapres. 3. Tegretol. 4. Verapamil. 5. Pravastatin. 6. Levothyroxine. 7. Gabapentin. 8. TriCor. 9. Zetia. 10. Eliquis. 11. Trileptal. 12. Multivitamin. 13. Meclizine. 14. Lexapro. 15. Avodart. 16. . REVIEW OF SYSTEMS: A 10-point review of systems is reviewed and is as above, otherwise negative. PHYSICAL EXAMINATION: VITAL SIGNS: Blood pressure 169/94, pulse 101, and respirations 20. Physical exam deferred due to COVID positive. PERTINENT LABORATORY DATA: Hemoglobin 12.7. Creatinine 0.71. IMPRESSION: 1. Elevated troponin. 2. COVID positive. 3. Previous cerebrovascular accident. 4. Thrombosis of unknown etiology, on Eliquis. RECOMMENDATIONS: The patient's symptoms felt to be minimal. He states it is 1/10. I have added IV nitroglycerin. He states it has helped. Given that his EKG is within normal limits and his troponin is downtrending, we will continue with conservative therapy. We will continue IV nitroglycerin. The patient is on Eliquis and we will hold Eliquis in place of Lovenox. This has been discontinued. Continue statin therapy in addition to aspirin and Zetia. The patient did present with markedly elevated blood pressure and may also be contributing to his elevated troponin. Job ID: [id number]
[2020-06-02] MEDS: Aspirin 81 mg Enteric Coated Tablet PO SCH (12:19)
[2020-06-02] MEDS: carBAMazepine 200 MG TAB PO SCH (12:19)
[2020-06-02] MEDS: cloNIDine 0.2 MG TAB PO SCH ×2 (12:19→16:37)
[2020-06-02] MEDS ORDERED: cloNIDine 0.1 MG TAB ONE (16:25)
[2020-06-02] MEDS: Atorvastatin Calcium 10 MG TAB PO SCH (21:57)
[2020-06-02] MEDS: Ezetimibe 10 MG TAB PO SCH (22:00)
[2020-06-02] MEDS: Fenofibrate Nanocrystallized 145 MG TAB PO SCH (22:00)
[2020-06-02] MEDS: Enoxaparin Sodium 100 MG/ML SYRINGE SC SCH (22:02)
[2020-06-03] MEDS: Sodium Chloride 0.9% 1,000 ML IV SCH (03:22)
[2020-06-03] MEDS: cloNIDine 0.2 MG TAB PO SCH ×4 (04:25→21:16)
[2020-06-03] MEDS: Gabapentin 300 MG CAP PO SCH ×5 (04:25→23:35)
[2020-06-03] MEDS: carBAMazepine 200 MG TAB PO SCH ×3 (04:25→21:15)
[2020-06-03 05:16] LABS: Hemoglobin 10.9 g/dL (14.0-18.0); Platelet Count 550 thou/uL (130-400)
[2020-06-03 05:25] LABS: Calc. Creatinine Clearance 137 mL/min (70-130)
[2020-06-03] MEDS: Levothyroxine Sodium 25 MCG TAB PO SCH (07:50)
--- NOTE | 2020-06-03 08:51 | PDOC.HOSPP ---
- Subjective Encounter Date: 06/03/20 Encounter Time: 10:30 Subjective: Called to bedside by nurse. Patient had some fluctuations in blood pressure this AM, started needing higher dose of O2. A few minutes ago patient stated that he couldn't breath, that he was getting fatigued, noted to be working very hard by nursing and his O2 sats dropped to below 50%. Bagging him right now and ER physician preparing to intubate. - Objective Vital Signs & Weight: Vital Signs (12 hours) BP 06/03/20 04:25 161/106 H Weight Weight 208 lb 15.971 oz Result Diagrams: 06/03/20 04:43 06/03/20 04:43 Hospitalist ROS - Review of Systems ROS unobtainable: due to mental status - Medication Medications: Active Medications Generic Name Dose Route Start Last Admin Trade Name Freq PRN Reason Stop Dose Admin Aspirin 81 mg 06/02/20 09:00 06/02/20 12:19 Aspirin 81 Mg Enteric Coated Tablet PO 81 mg DAILY MARYELLEN Administration Atorvastatin Calcium 10 mg 06/02/20 21:00 06/02/20 21:57 Atorvastatin Calcium 10 Mg Tab PO 10 mg HS MARYELLEN Administration Carbamazepine 400 mg 06/02/20 09:00 06/03/20 04:25 Carbamazepine 200 Mg Tab PO 400 mg BID MARYELLEN Administration Clonidine 0.2 mg 06/02/20 09:00 06/03/20 04:25 Clonidine 0.2 Mg Tab PO 0.2 mg TID MARYELLEN Administration Ezetimibe 10 mg 06/02/20 21:00 06/02/20 22:00 Ezetimibe 10 Mg Tab PO 10 mg HS MARYELLEN Administration Enoxaparin Sodium 90 mg 06/02/20 21:00 06/02/20 22:02 Enoxaparin Sodium 100 Mg/Ml Syringe SC 90 mg 0900,2100 MARYELLEN Administration Fenofibrate 145 mg 06/02/20 21:00 06/02/20 22:00 Fenofibrate Nanocrystallized 145 Mg Tab PO 145 mg HS MARYELLEN Administration Gabapentin 600 mg 06/01/20 23:59 06/03/20 07:04 Gabapentin 300 Mg Cap PO 600 mg Q6HR MARYELLEN Administration Hydralazine HCl 10 mg 06/02/20 06:25 06/02/20 06:57 Hydralazine 20 Mg/Ml Vial SLOW IVP 10 mg Q4H PRN Administration SBP Greater Than 170 Nicardipine HCl 25 mg/ Sodium 250 mls @ 0 mls/hr 06/02/20 06:30 06/02/20 06:33 Chloride IVPB 250 mls INF MARYELLEN Administration Protocol Titrate Nitroglycerin/Dextrose 250 mls @ 0 mls/hr 06/02/20 09:45 06/02/20 10:37 Nitroglycerin 50 Mg/250 Ml Bot IVPB 250 mls INF MARYELLEN Administration Protocol As Directed Levothyroxine Sodium 25 mcg 06/02/20 06:00 06/03/20 07:50 Levothyroxine Sodium 25 Mcg Tab PO 25 mcg 0600 MARYELLEN Administration Nifedipine 30 mg 06/02/20 09:00 06/02/20 09:00 Nifedipine Xl 30 Mg Tab PO Not Given DAILY [facility] Nitroglycerin 1 inch 06/02/20 09:00 06/02/20 22:02 Nitroglycerin 2% Ointment 1 Inch/1 Gm Packet TOP 1 inch BID MARYELLEN Administration Ondansetron HCl 4 mg 06/01/20 21:32 06/02/20 06:14 Ondansetron Pf 4 Mg/2 Ml Vial IVP 4 mg Q6H PRN Administration Nausea/Vomiting Sodium Chloride 10 ml 06/02/20 09:00 06/03/20 03:23 Flush - Normal Saline 10 Ml Syringe IVF Not Given Q12HR [facility] Verapamil HCl 360 mg 06/02/20 21:00 06/02/20 22:00 Verapamil Er 180 Mg Tab PO 360 mg HS MARYELLEN Administration - Exam General - other findings: in respiratory distress, arousable but not alert ENT: moist mucosa Heart: RRR, no murmur, no gallops, no rubs Respiratory - other findings: increased WOB, tachypnea, clear breath sounds to auscultation Gastrointestinal: soft, non-tender, non-distended, normal bowel sounds Neurological - other findings: moving all extremities Psychiatric: lethargic Hosp A/P - Plan (1) Hypertensive emergency Code(s): I16.1 - HYPERTENSIVE EMERGENCY Status: Acute (2) NSTEMI (non-ST elevated myocardial infarction) Code(s): I21.4 - NON-ST ELEVATION (NSTEMI) MYOCARDIAL INFARCTION Status: Acute (3) History of CVA (cerebrovascular accident) Code(s): Z86.73 - PRSNL HX OF TIA (TIA), AND CEREB INFRC W/O RESID DEFICITS Status: Acute (4) Hypothyroid Code(s): E03.9 - HYPOTHYROIDISM, UNSPECIFIED Status: Acute (5) Seizures Code(s): R56.9 - UNSPECIFIED CONVULSIONS Status: Acute (6) Nausea & vomiting Code(s): R11.2 - NAUSEA WITH VOMITING, UNSPECIFIED Status: Acute (7) COVID-19 positive Suspect that this is a false negative as very unlikely to get repeat infection. Doubt this is contributing to his current symptoms. - Plan Plan: 60y/o male with the stated pmhx who presents to hospital due to hypertensive urgency with heart as target hypertensive urgency - was 190/125s - started on cardene drip- weaned off with nitro drip - elevated troponin peak at 0.79, now down to 0.5 - continue home meds and optimize accordingly - head ct negative nstemi - likely type in the setting of hypertensive urgency - chest pain this morning, adding nitro drip - on AC w elliquis- switched to Lovenox - on verapamil, allergic to acei, continue asa statin - 2d echo - cardiology evaluation- appreciate Dr. Loza's assistance hx of cva - continue antiplatelet and statin for secondary prevention seizure - continue home meds n/v - symptomatic tx prn COVID-19 positive test, suspect false positive vs. mild reinfection Acute respiratory failure with hypoxia- concern for possible Covid-19 pneumonia vs. fluid overload. He was started on fluids in the ER. Stopping those and giving Lasix. CXR with some mildly increased pulmonary vascular markings on the right but not really impressive. Will check CTA to rule out PE. Pulmonology consultation and transfer to the ICU.
[2020-06-03] MEDS ORDERED: Enoxaparin Sodium 100 MG/ML SYRINGE ONE (09:54)
[2020-06-03] MEDS ORDERED: Nitroglycerin 2% Ointment 1 INCH/1 GM Packet ONE (09:54)
[2020-06-03] MEDS ORDERED: NIFEdipine XL 30 MG TAB ONE (09:54)
[2020-06-03] MEDS ORDERED: cloNIDine 0.1 MG TAB ONE (09:54)
[2020-06-03] MEDS ORDERED: Aspirin Chewable 81 MG TAB ONE (09:54)
[2020-06-03] MEDS: Aspirin 81 mg Enteric Coated Tablet PO SCH (09:55)
[2020-06-03] MEDS ORDERED: Rocuronium Bromide 10 MG/ML (10ML VIAL) ONE (10:08)
[2020-06-03] MEDS ORDERED: Fentanyl 100 MCG/2 ML VIAL ONE (10:26)
[2020-06-03] MEDS ORDERED: fentaNYL Citrate/PF 2,000 MCG in Sodium Chloride 0.9% 60 ML IV SCH (10:45)
[2020-06-03] MEDS ORDERED: Norepinephrine 8 MG/0.9% NS 250 ML ONE (10:48)
[2020-06-03] MEDS ORDERED: Iopamidol-370 76% 500 ML 1 ML ONE (10:53)
[2020-06-03 11:00] LABS: Analyzer IN Cardio ER; Base Excess (BEa) -1.5 mEq/L (-2.0 to +3.0); CO2 Tension 50.7 mmHg (35.0-45.0); Calcium, Ionized (arterial) 1.07 mmol/L (1.12-1.30); Carboxyhemoglobin (COHb) 0.6 gm% (0.0-3.0); Hemoglobin (Hb) 9.6 g/dL (14.0-18.0); O2 Tension (PaO2), arterial 70.8 mmHg (> 80.0); Potassium - ABG Lab 3.56 mmol/L (3.70-5.30); pH, Arterial 7.31 (7.35-7.45)
[2020-06-03] MEDS: Enoxaparin Sodium 100 MG/ML SYRINGE SC SCH ×2 (11:00→21:16)
[2020-06-03] MEDS: Nitroglycerin 2% Ointment 1 INCH/1 GM Packet TOP SCH ×2 (11:00→21:16)
[2020-06-03 11:06] LABS: ALV-art Gradient 222.325 mmHg (0-20); Puncture Site RBA
[2020-06-03] MEDS: NIFEdipine XL 30 MG TAB PO SCH (11:16)
--- NOTE | 2020-06-03 11:31 | RAD ---
Chest one view HISTORY: Central line placement. COMPARISON: Earlier exam on same date. FINDINGS: Cardiac silhouette is magnified by projection. Tip of a left subclavian central venous catheter projects over the superior vena cava. No evidence of pneumothorax. Endotracheal catheter unchanged in position. Nasogastric tube partially visualized. : IMPRESSION : Left subclavian central venous catheter is in good radiographic position.
[2020-06-03] MEDS ORDERED: Furosemide 40 MG/4 ML VIAL SLOW IVP SCH ×2 (12:00→14:00)
--- NOTE | 2020-06-03 12:24 | CT ---
CT ANGIOGRAM THORAX WITH IV CONTRAST AND 3-D RECONSTRUCTIONS CLINICAL INDICATION: Hypoxia, respiratory distress. COMPARISON: None FINDINGS: Pulmonary arteries: No filling defects are seen in the pulmonary arteries to suggest a pulmonary embo hannah. Aorta: The aorta is normal in caliber without evidence of an aortic dissection. Lungs: There is consolidation seen in the posterior aspect of the right upper lobe as well as in the medial and posterior aspect of the right lower lobe with adjacent patchy parenchymal densities in both the upper and lower lobes on the right. There are a few mild reticulonodular densities are seen in the left upper lobe and left lower lobe. Findings are worrisome for infectious process. Atypical infectious process is a possibility. Aspiration pneumonitis is a differential consideration as well. Mediastinum: Tracheostomy device is noted in place. Nasogastric tube is in place, but the tip is inco mpletely imaged on this exam. There is diminished attenuation seen at the tip of the tracheostomy tube which could be related to small amount of debris or secretions. A mildly enlarged right paratracheal lymph node is seen in the superior mediastinum with increase in lymph nodes in the right hilar and subcarinal regions likely reactive in origin. Trace pericardial effusion is present. A left subclavian vein central venous catheter is noted in place. Thyroid gland: Normal in appearance where imaged. Osseous structures: There is calcification of the anterior longitudinal ligament with multilevel brid ging osteophytes present involving the thoracic spine. Chest wall: No abnormality visualized. Upper abdomen: Incompletely imaged subcentimeter nodular density right adrenal gland is present. This was seen on prior CT abdomen in 2019 study in 2015. IMPRESSION: 1. Right lower lobe and right upper lobe pneumonia with reticulonodular and minimal patchy densities also seen within the right middle lobe as well as left upper and left lower lobes. These findings are also worrisome for infectious process. Atypical infectious process is a possibility. A component of aspiration pneumonitis cannot be entirely excluded. 2. No CT evidence for pulmonary embolus. 3. Probable reactive mediastinal lymphadenopathy. 4. Minimal amount of debris or secretions at the distal tip of the tracheostomy tube.
--- NOTE | 2020-06-03 12:24 | RAD ---
PORTABLE CHEST: INDICATION: Hypoxia. COMPARISON: 06/01/2020. FINDINGS: No evidence of focal infiltrate or vascular congestion. Heart size upper normal and stable. IMPRESSION: No acute finding or significant interval change. POS: AGW
[2020-06-03] MEDS ORDERED: Enoxaparin Sodium 100 MG/ML SYRINGE SC SCH (12:30)
[2020-06-03] MEDS ORDERED: Norepinephrine 8 MG/0.9% NS 250 ML IVPB SCH (13:15)
[2020-06-03] MEDS ORDERED: Norepinephrine 8 MG in Dextrose 5% in Water 242 ML IVPB PRN (13:15)
[2020-06-03] MEDS ORDERED: Norepinephrine 8 MG/0.9% NS 8 MG in Premix Bag 1 BAG IVPB PRN (13:30)
--- NOTE | 2020-06-03 14:47 | RAD ---
CHEST 1 VIEW: HISTORY: Intubation. COMPARISON: 06/03/2020. FINDINGS: NG tube and endotracheal tubes have been placed. Inspiration is poor with some increased markings, p articularly in the perihilar regions. No confluent pneumonia or overt edema or significant pleural e ffusion. IMPRESSION: Endotracheal tube and nasogastric tubes in position. Poor inspiratory effort with some increased mar kings in the perihilar regions without other acute process. POS: OFF
[2020-06-03] MEDS: PROVENTIL INHALER 6.7 G (200 INHALATIONS) INH SCH ×3 (16:29→23:43)
[2020-06-03] MEDS: methylPREDNISolone Sod Succ 40 MG VIAL IVP SCH ×2 (17:25→23:35)
[2020-06-03 18:25] VITALS: BMI 35.2
[2020-06-03] MEDS: Fenofibrate Nanocrystallized 145 MG TAB PO SCH (21:15)
[2020-06-03] MEDS: Cefepime 1 GM in Sodium Chloride 0.9% 100 ML IVPB SCH (21:15)
[2020-06-03] MEDS: Ezetimibe 10 MG TAB PO SCH (21:16)
[2020-06-03] MEDS: Atorvastatin Calcium 10 MG TAB PO SCH (21:16)
--- NOTE | 2020-06-03 21:31 | EKG ---
Test Reason : CHEST PAIN Blood Pressure : / mmHG Vent. Rate : 109 BPM Atrial Rate : 109 BPM P-R Int : 150 ms QRS Dur : 082 ms QT Int : 382 ms P-R-T Axes : 071 047 045 degrees QTc Int : 514 ms Sinus tachycardia Nonspecific ST abnormality Abnormal ECG Confirmed by Hank DELATORRE ([id number]) on 06/03/2020 9:30:34 PM Referred By: KAREN Confirmed By:Hank DELATORRE
[2020-06-03] MEDS ORDERED: Verapamil 120 MG TAB PO SCH (21:45)
[2020-06-03] MEDS: Morphine 4 MG/ML VIAL SLOW IVP PRN (23:30)
[2020-06-04] MEDS: niCARdipine 25 MG in Sodium Chloride 0.9% 250 ML 240 ML IVPB SCH (02:34)
[2020-06-04 04:39] LABS: #Lymphocytes 0.7 thou/uL (1.20-3.40); #Monocytes 0.2 thou/uL (0.11-0.59); #Neutrophils 15.2 thou/uL (1.40-6.50); %Eosinophils 0.1 % (0.0-10.0); %Lymphocytes 4.5 % (21.0-51.0); %Neutrophils 94.5 % (42.0-75.0); Hemoglobin 8.6 g/dL (14.0-18.0); Mean Corpuscular HGB CONC 31.9 g/dL (32.0-36.0); Mean Corpuscular Hemoglobin 29.9 pg (27.0-31.0); Mean Corpuscular Volume 93.8 fL (78.0-98.0); Mean Platelet Volume 6.9 fL (7.4-10.4); Platelet Count 406 thou/uL (130-400); RBC Distribution Width 13.3 % (11.5-14.5); Red Blood Cell (RBC) Count 2.87 mill/uL (4.70-6.10); White Blood Cell (WBC) Count 16.1 thou/uL (4.8-10.8)
[2020-06-04 04:50] LABS: Anion Gap 13 mmol/L (10-20); BUN (Urea Nitrogen) 21 mg/dL (8.4-25.7); Calc. Creatinine Clearance 154 mL/min (70-130); Carbon Dioxide 27 mmol/L (23-31); Chloride 98 mmol/L (98-107); Glucose 119 mg/dL (80-115); Potassium 3.9 mmol/L (3.5-5.1); Sodium 134 mmol/L (136-145)
[2020-06-04] MEDS: Gabapentin 300 MG CAP PO SCH ×3 (05:14→18:27)
[2020-06-04] MEDS: methylPREDNISolone Sod Succ 40 MG VIAL IVP SCH ×3 (05:14→18:27)
[2020-06-04] MEDS: Levothyroxine Sodium 25 MCG TAB PO SCH (05:29)
--- NOTE | 2020-06-04 06:17 | CON ---
DATE OF CONSULTATION: HISTORY OF PRESENT ILLNESS: Kareem Smith is a 60-year-old gentleman, who has been in the ER for 36 hours. Apparently, this morning, according to the ER nurse while they were trying to give him medicine for hypertension, he became hypoxemic, lethargic, unresponsive, was intubated. On arrival, 05/02/2020, at 1800 hours, his pulse was 114, respirations 15, sats on room air were 93%, temperature 97, blood pressure 155/117. He was having some vague chest pain. He was seen by the ER and Cardiology. Apparently, he was started on Lovenox. He is already taking Eliquis. Presently, intubated in the ICU. His serology for coronavirus was positive. PAST MEDICAL HISTORY: 1. Hypertension. 2. Hypothyroidism. 3. Seizures. 4. Arthritis. 5. High cholesterol. 6. BPH. PAST SURGICAL HISTORY: Carpal tunnel. SOCIAL HISTORY: Alcohol, none. No tobacco. [facility] patient. HOME MEDICATIONS: Include; 1. Catapres 0.2. 2. Tegretol. 3. Verapamil. 4. Synthroid. 5. Gabapentin. 6. Zetia. 7. Eliquis 5 twice a day. 8. Eye drops twice day. 9. Meclizine. 10. Hydrocodone. 11. Lexapro. ALLERGIES: NONE EXCEPT FOR [place]. PHYSICAL EXAMINATION: GENERAL: He is in the ICU. He opens eyes to painful stimuli. VITAL SIGNS: Pulse is 100, sats 98%, blood pressure 138/80. CHEST: No wheezing. No crackles. CARDIAC: Normal S1, S2. No gallops. ABDOMEN: No masses. LABORATORY STUDIES: PO2 of 70, pCO2, pH 7.31, PEEP of 5, rate of 14, 50%. X-ray shows a questionable left-sided infiltrate. White count 11,000, H and H of 12 and 38, platelet count is normal. His lytes are normal. Sodium 129. Troponin is elevated. IMPRESSION: Respiratory failure, hypoventilation, morbid obesity, CVA, recent CT, no hemorrhage, elevated troponin, probably sleep apnea, recent diagnosis of berman positive status, but his x-ray is not classic for that finding. Pulmonary crawford, steroids, empiric antibiotics initiated. He is already on Lovenox. Hold all sedation. We will try and wean as tolerated. TIME SPENT: Critical care time, 45 minutes. Job ID: [id number]
[2020-06-04] MEDS: PROVENTIL INHALER 6.7 G (200 INHALATIONS) INH SCH ×3 (07:47→20:08)
--- NOTE | 2020-06-04 07:58 | PDOC.HOSPP ---
- Subjective Encounter Date: 06/04/20 Encounter Time: 10:00 Subjective: Patient remains intubated this AM, but is arousable, following commands. - Objective Vital Signs & Weight: Vital Signs (12 hours) Temp Pulse Resp BP Pulse Ox 06/04/20 07:47 112 H 14 100 06/04/20 07:43 110 H 143/87 H 06/04/20 06:00 14 06/04/20 04:00 98.9 F 14 06/04/20 02:00 14 06/04/20 01:00 98.2 F 06/04/20 00:00 14 06/03/20 22:00 14 06/03/20 20:00 98.5 F 14 100 Weight Weight 225 lb 4.999 oz Most Recent Monitor Data Heart Rate from ECG 103 NIBP 149/87 NIBP BP-Mean 107 Respiration from ECG 16 SpO2 99 I&O: 06/03/20 06/04/20 06/05/20 06:59 06:59 06:59 Intake Total 1211 Output Total 2374 Balance -1163 Result Diagrams: 06/04/20 03:20 06/04/20 03:20 Hospitalist ROS - Review of Systems ROS unobtainable: due to endotracheal tube Respiratory: denies: shortness of breath - Medication Medications: Active Medications Generic Name Dose Route Start Last Admin Trade Name Freq PRN Reason Stop Dose Admin Albuterol Sulfate 2 puff 06/03/20 13:00 06/04/20 07:47 Proventil Inhaler 6.7 G (200 Inhalations) INH 2 puff [id number] MARYELLEN Administration Aspirin 81 mg 06/02/20 09:00 06/03/20 09:55 Aspirin 81 Mg Enteric Coated Tablet PO 81 mg DAILY MARYELLEN Administration Atorvastatin Calcium 10 mg 06/02/20 21:00 06/03/20 21:16 Atorvastatin Calcium 10 Mg Tab PO 10 mg HS MARYELLEN Administration Carbamazepine 400 mg 06/02/20 09:00 06/03/20 21:15 Carbamazepine 200 Mg Tab PO 400 mg BID MARYELLEN Administration Clonidine 0.2 mg 06/02/20 09:00 06/03/20 21:16 Clonidine 0.2 Mg Tab PO 0.2 mg TID MARYELLEN Administration Ezetimibe 10 mg 06/02/20 21:00 06/03/20 21:16 Ezetimibe 10 Mg Tab PO 10 mg HS MARYELLEN Administration Enoxaparin Sodium 90 mg 06/02/20 21:00 06/03/20 21:16 Enoxaparin Sodium 100 Mg/Ml Syringe SC 90 mg 0900,2100 MARYELLEN Administration Fenofibrate 145 mg 06/02/20 21:00 06/03/20 21:15 Fenofibrate Nanocrystallized 145 Mg Tab PO 145 mg HS MARYELLEN Administration Gabapentin 600 mg 06/01/20 23:59 06/04/20 05:14 Gabapentin 300 Mg Cap PO 600 mg Q6HR MARYELLEN Administration Hydralazine HCl 10 mg 06/02/20 06:25 06/02/20 06:57 Hydralazine 20 Mg/Ml Vial SLOW IVP 10 mg Q4H PRN Administration SBP Greater Than 170 Nicardipine HCl 25 mg/ Sodium 250 mls @ 0 mls/hr 06/02/20 06:30 06/04/20 02:34 Chloride IVPB 250 mls INF MARYELLEN Administration Protocol Titrate Nitroglycerin/Dextrose 250 mls @ 0 mls/hr 06/02/20 09:45 06/02/20 10:37 Nitroglycerin 50 Mg/250 Ml Bot IVPB 250 mls INF MARYELLEN Administration Protocol As Directed Cefepime HCl 1 gm/ Sodium 100 mls @ 200 mls/hr 06/03/20 21:00 06/03/20 21:15 Chloride IVPB 100 mls Q12HR MARYELLEN Administration Levofloxacin 750 mg/ Device 150 mls @ 100 mls/hr 06/03/20 14:00 06/03/20 13:19 IVPB 150 mls 1400 MARYELLEN Administration Levothyroxine Sodium 25 mcg 06/02/20 06:00 06/04/20 05:29 Levothyroxine Sodium 25 Mcg Tab PO 25 mcg 0600 MARYELLEN Administration Methylprednisolone Sodium Succinate 40 mg 06/03/20 18:00 06/04/20 05:14 Methylprednisolone Sod Succ 40 Mg Vial IVP 40 mg Q6HR MARYELLEN Administration Morphine Sulfate 4 mg 06/02/20 08:20 06/03/20 23:30 Morphine 4 Mg/Ml Vial SLOW IVP 4 mg Q4H PRN Administration Severe Pain (7-10) Nifedipine 30 mg 06/02/20 09:00 06/03/20 11:16 Nifedipine Xl 30 Mg Tab PO 30 mg DAILY MARYELLEN Administration Nitroglycerin 1 inch 06/02/20 09:00 06/03/20 21:16 Nitroglycerin 2% Ointment 1 Inch/1 Gm Packet TOP 1 inch BID MARYELLEN Administration Ondansetron HCl 4 mg 06/01/20 21:32 06/02/20 06:14 Ondansetron Pf 4 Mg/2 Ml Vial IVP 4 mg Q6H PRN Administration Nausea/Vomiting Sodium Chloride 10 ml 06/02/20 09:00 06/03/20 21:17 Flush - Normal Saline 10 Ml Syringe IVF 10 ml Q12HR MARYELLEN Administration - Exam General Appearance: NAD, awake alert ENT: moist mucosa ENT - other findings: ET tube in place Heart: RRR, no murmur, no gallops, no rubs Respiratory: CTAB, no wheezes, no rales, no ronchi Gastrointestinal: soft, non-tender, non-distended, normal bowel sounds Psychiatric: normal affect, normal behavior Hosp A/P - Plan (1) Hypertensive emergency Code(s): I16.1 - HYPERTENSIVE EMERGENCY Status: Acute (2) NSTEMI (non-ST elevated myocardial infarction) Code(s): I21.4 - NON-ST ELEVATION (NSTEMI) MYOCARDIAL INFARCTION Status: Acute (3) History of CVA (cerebrovascular accident) Code(s): Z86.73 - PRSNL HX OF TIA (TIA), AND CEREB INFRC W/O RESID DEFICITS Status: Acute (4) Hypothyroid Code(s): E03.9 - HYPOTHYROIDISM, UNSPECIFIED Status: Acute (5) Seizures Code(s): R56.9 - UNSPECIFIED CONVULSIONS Status: Acute (6) Nausea & vomiting Code(s): R11.2 - NAUSEA WITH VOMITING, UNSPECIFIED Status: Acute (7) COVID-19 positive Suspect that this is a false negative as very unlikely to get repeat infection. Doubt this is contributing to his current symptoms. 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 Loza's assistance hx of cva - continue antiplatelet and statin for secondary prevention seizure - continue home meds n/v - symptomatic tx prn COVID-19 positive test, suspect false positive vs. mild reinfection Acute respiratory failure with hypoxia- concern for possible Covid-19 pneumonia vs. fluid overload. He was started on fluids in the ER. Stopping those and giving Lasix. CXR with some mildly increased pulmonary vascular markings on the right but not really impressive. CTA negative for PE. Intubated in the ER last night now in the ICU on the vent. Dr. Velez following.
--- NOTE | 2020-06-04 08:25 | RAD ---
Portable frontal chest radiograph: 06/04/2020 COMPARISON: 06/03/2020 HISTORY: Ventilated patient FINDINGS: Stable endotracheal tube, left subclavian vascular catheter, and nasogastric tube. Persiste nt hazy bibasilar densities suggest nonspecific parenchymal opacity and associated small bilateral pleural effusions. IMPRESSION: No significant interval change.
[2020-06-04 08:40] LABS: Actual Bicarbonate (HCO3a) 24.6 mEq/L (22-28); CO2 Tension 40.1 mmHg (35.0-45.0); Calcium, Ionized (arterial) 1.12 mmol/L (1.12-1.30); Carboxyhemoglobin (COHb) 0.8 gm% (0.0-3.0); Hemoglobin (Hb) 9.7 g/dL (14.0-18.0); O2 Tension (PaO2), arterial 74.7 mmHg (> 80.0); Potassium - ABG Lab 3.72 mmol/L (3.70-5.30); pH, Arterial 7.41 (7.35-7.45)
[2020-06-04] MEDS: Cefepime 1 GM in Sodium Chloride 0.9% 100 ML IVPB SCH ×2 (08:56→20:58)
[2020-06-04] MEDS: Aspirin 81 mg Enteric Coated Tablet PO SCH (08:56)
[2020-06-04] MEDS: Enoxaparin Sodium 100 MG/ML SYRINGE SC SCH ×2 (08:57→20:58)
[2020-06-04] MEDS: carBAMazepine 200 MG TAB PO SCH ×2 (08:57→20:57)
[2020-06-04 09:00] LABS: ALV-art Gradient 160.375 mmHg (0-20); Puncture Site RRA
[2020-06-04] MEDS: NIFEdipine XL 30 MG TAB PO SCH (09:16)
[2020-06-04] MEDS: cloNIDine 0.2 MG TAB PO SCH ×3 (09:16→20:58)
[2020-06-04] MEDS: Verapamil 120 MG TAB PO SCH ×3 (09:17→20:57)
[2020-06-04] MEDS: Nitroglycerin 2% Ointment 1 INCH/1 GM Packet TOP SCH (09:17)
--- NOTE | 2020-06-04 17:44 | PRG ---
DATE OF SERVICE: 06/04/2020 SUBJECTIVE: Mr. Smith remains mechanically ventilated. He will awaken. OBJECTIVE: VITAL SIGNS: Heart rate is 115, blood pressure 163/90, respiratory rate 17, and oximetry is 98. LUNGS: Remarkable for equal breath sounds. HEART: Regular rhythm. ABDOMEN: Soft. EXTREMITIES: Without edema. DIAGNOSTIC STUDIES: Chest x-ray is unchanged. IMPRESSION: Respiratory failure ? associated with hypertensive event. It does not appear COVID pneumonia that led to his respiratory failure. He is having chest discomfort and had an extremely high diastolic blood pressure, subsequently required intubation. It may be that the coronavirus is an incidental finding as Dr. Velez suggested. We will decrease ventilatory support, and hopefully, he will be a candidate for spontaneous breathing trial in the morning. Critical care time 30 min. Job ID: [id number] MTDD
[2020-06-04] MEDS: Ezetimibe 10 MG TAB PO SCH (20:57)
[2020-06-04] MEDS: Atorvastatin Calcium 10 MG TAB PO SCH (20:57)
[2020-06-04] MEDS: Fenofibrate Nanocrystallized 145 MG TAB PO SCH (20:57)
[2020-06-04] MEDS: Morphine 4 MG/ML VIAL SLOW IVP PRN (21:21)
[2020-06-05] MEDS: Gabapentin 300 MG CAP PO SCH ×4 (00:19→19:25)
[2020-06-05] MEDS: methylPREDNISolone Sod Succ 40 MG VIAL IVP SCH ×4 (00:20→17:29)
[2020-06-05] MEDS: Morphine 4 MG/ML VIAL SLOW IVP PRN (00:42)
[2020-06-05] MEDS: PROVENTIL INHALER 6.7 G (200 INHALATIONS) INH SCH ×5 (01:26→23:54)
[2020-06-05] MEDS: HYDROcodone/Acetaminophen 5/325 mg Tablet PO PRN ×2 (03:12→08:27)
[2020-06-05] MEDS: hydrALAZINE 20 MG/ML VIAL SLOW IVP PRN (03:12)
[2020-06-05 04:38] LABS: #Basophils 0.1 thou/uL (0.0-0.2); #Lymphocytes 1.7 thou/uL (1.20-3.40); #Monocytes 0.6 thou/uL (0.11-0.59); #Neutrophils 17.2 thou/uL (1.40-6.50); %Basophils 0.4 % (0.0-1.0); %Eosinophils 0.1 % (0.0-10.0); %Lymphocytes 8.6 % (21.0-51.0); %Neutrophils 87.9 % (42.0-75.0); Hemoglobin 6.3 g/dL (14.0-18.0); Mean Corpuscular HGB CONC 32.6 g/dL (32.0-36.0); Mean Corpuscular Hemoglobin 30.5 pg (27.0-31.0); Mean Corpuscular Volume 93.5 fL (78.0-98.0); Mean Platelet Volume 7.1 fL (7.4-10.4); Platelet Count 501 thou/uL (130-400); RBC Distribution Width 13.3 % (11.5-14.5); Red Blood Cell (RBC) Count 2.05 mill/uL (4.70-6.10); White Blood Cell (WBC) Count 19.6 thou/uL (4.8-10.8)
[2020-06-05 04:55] LABS: Anion Gap 13 mmol/L (10-20); BUN (Urea Nitrogen) 32 mg/dL (8.4-25.7); Calc. Creatinine Clearance 158 mL/min (70-130); Calcium 8.5 mg/dL (7.8-10.44); Carbon Dioxide 28 mmol/L (23-31); Chloride 95 mmol/L (98-107); Glucose 127 mg/dL (80-115); Potassium 3.9 mmol/L (3.5-5.1); Sodium 132 mmol/L (136-145)
[2020-06-05] MEDS: niCARdipine 25 MG in Sodium Chloride 0.9% 250 ML 240 ML IVPB SCH ×3 (06:17→15:44)
[2020-06-05] MEDS: Levothyroxine Sodium 25 MCG TAB PO SCH (06:49)
[2020-06-05] MEDS: NIFEdipine XL 30 MG TAB PO SCH (08:26)
[2020-06-05] MEDS: carBAMazepine 200 MG TAB PO SCH ×2 (08:26→20:02)
[2020-06-05] MEDS: Verapamil 120 MG TAB PO SCH ×3 (08:27→20:02)
[2020-06-05] MEDS: cloNIDine 0.2 MG TAB PO SCH ×3 (08:27→20:02)
[2020-06-05] MEDS: Cefepime 1 GM in Sodium Chloride 0.9% 100 ML IVPB SCH ×2 (08:28→20:01)
[2020-06-05 08:56] LABS: Actual Bicarbonate (HCO3a) 23.9 mEq/L (22-28); Analyzer IN Cardio ER; Base Excess (BEa) 0.4 mEq/L (-2.0 to +3.0); CO2 Tension 33.6 mmHg (35.0-45.0); Calcium, Ionized (arterial) 1.11 mmol/L (1.12-1.30); Carboxyhemoglobin (COHb) 0.2 gm% (0.0-3.0); Hemoglobin (Hb) 7.8 g/dL (14.0-18.0); O2 Tension (PaO2), arterial 90.9 mmHg (> 80.0); Potassium - ABG Lab 3.82 mmol/L (3.70-5.30); pH, Arterial 7.47 (7.35-7.45)
[2020-06-05 09:15] LABS: Puncture Site RRA
--- NOTE | 2020-06-05 10:26 | RAD ---
EXAM: Chest one view: HISTORY: Respiratory insufficiency COMPARISON: 06/04/2020 FINDINGS: Stable life-support tubes. Left lateral inferior chest is obscured. Heart size: Overall stable appearing patchy parenchymal changes. Lungs: Clear of acute process. No significant new process. IMPRESSION: Stable bilateral patchy parenchymal changes.
--- NOTE | 2020-06-05 11:04 | PRG ---
DATE OF SERVICE: 06/05/2020 SUBJECTIVE: Kareem Smith is a 60-year-old gentleman, on the vent, awake, alert and responsive, no sedation. OBJECTIVE: VITAL SIGNS: Pulse 113, blood pressure 143/88, saturations 100%, respiratory rate 18, afebrile. CHEST: No wheezing, no crackles. CARDIAC: Normal S1, S2. ABDOMEN: No masses. LABORATORY DATA: White count 19,000, hemoglobin and hematocrit 6 and 19, platelet count of 501. His PO2 is 90, pCO2 of 33, pH 7.47. Lytes are normal. ASSESSMENT: 1. Respiratory failure. 2. Abnormal troponin. PLAN: Cardiology has yet to see the patient. He is on full-dose Lovenox. Bleeding from his central line. I asked the nurse to notify Cardiology to see whether he needs his full-dose Lovenox. Meantime, we are going to wean and extubate. Probably aspirated, Probably he has sleep apnea. One-half hour of critical care time. Job ID: [id number]
[2020-06-05] MEDS: Enoxaparin Sodium 100 MG/ML SYRINGE SC SCH ×2 (11:31→20:02)
[2020-06-05 17:55] LABS: Actual Bicarbonate (HCO3a) 28.7 mEq/L (22-28); Base Excess (BEa) -2.4 mEq/L (-2.0 to +3.0); Calcium, Ionized (arterial) 1.18 mmol/L (1.12-1.30); Carboxyhemoglobin (COHb) 0.7 gm% (0.0-3.0); Hemoglobin (Hb) 10.2 g/dL (14.0-18.0)
[2020-06-05 18:02] LABS: CO2 Tension 94.2 mmHg (35.0-45.0)
[2020-06-05] MEDS ORDERED: Propofol 1,000 MG/100 ML VIAL IV ONE (18:02)
[2020-06-05 18:03] LABS: O2 Tension (PaO2), arterial 59.9 mmHg (> 80.0); Puncture Site RRA
[2020-06-05 18:35] LABS: Actual Bicarbonate (HCO3a) 26.2 mEq/L (22-28); Base Excess (BEa) -0.4 mEq/L (-2.0 to +3.0); CO2 Tension 52.6 mmHg (35.0-45.0); Calcium, Ionized (arterial) 1.09 mmol/L (1.12-1.30); Carboxyhemoglobin (COHb) 0.7 gm% (0.0-3.0); Hemoglobin (Hb) 10.1 g/dL (14.0-18.0); pH, Arterial 7.32 (7.35-7.45)
[2020-06-05 18:36] LABS: Puncture Site LBA
--- NOTE | 2020-06-05 18:52 | PDOC.HOSPP ---
- Subjective Encounter Date: 06/05/20 Encounter Time: 18:25 Subjective: f/u for COVID PNA/hypoxic resp failure on mech ventilation receiving Cefepime/Levaquin/Solumedrol/Lovenox. - Objective Vital Signs & Weight: Vital Signs (12 hours) Temp Pulse Resp BP Pulse Ox 06/05/20 18:42 99 154/93 H 06/05/20 18:38 98 22 H 97 06/05/20 16:43 112 H 28 H 95 06/05/20 14:00 108 H 06/05/20 12:15 110 H 16 95 06/05/20 12:00 96.2 F L 95 06/05/20 11:03 100 139/81 06/05/20 10:00 11 L 06/05/20 08:27 143/89 H 06/05/20 08:26 113 H 143/89 H 06/05/20 08:24 112 H 13 100 06/05/20 08:11 112 H 143/89 H 99 06/05/20 08:00 96.9 F L 13 100 Weight Admit Weight 225 lb Weight 225 lb 4.999 oz Most Recent Monitor Data Heart Rate from ECG 108 NIBP 141/76 NIBP BP-Mean 97 Respiration from ECG 30 SpO2 92 I&O: 06/04/20 06/05/20 06/06/20 06:59 06:59 06:59 Intake Total 1211 810 450 Output Total 2374 1005 [facility] -1163 -195 -365 Result Diagrams: 06/05/20 03:20 06/05/20 03:20 Additional Labs: Laboratory Tests 06/01/20 06/01/20 06/01/20 18:39 18:39 21:41 WBC Hgb Plt Count Sodium Troponin I 0.538 H* 0.756 H* B-Natriuretic Peptide 165.9 H SARS-CoV-2 Rap RNA(RT-PCR) 06/01/20 06/02/20 06/02/20 22:20 01:03 06:52 WBC Hgb Plt Count Sodium 129 L Troponin I 0.798 H* B-Natriuretic Peptide SARS-CoV-2 Rap RNA(RT-PCR) DETECTED A* 06/02/20 06/02/20 06/03/20 06:52 09:59 04:43 WBC 11.4 H Hgb 12.7 L 10.9 L Plt Count 522 H 550 H Sodium Troponin I 0.552 H* B-Natriuretic Peptide SARS-CoV-2 Rap RNA(RT-PCR) 06/04/20 06/04/20 03:20 03:20 WBC 16.1 H Hgb 8.6 L Plt Count 406 H Sodium 134 L Troponin I B-Natriuretic Peptide SARS-CoV-2 Rap RNA(RT-PCR) Radiology Reviewed by me: Yes (PCXR - lines/tubes in place, bilat patchy infiltrates) EKG Reviewed by me: Yes (Tele - SR) Hospitalist ROS - Medication Medications: Active Medications Generic Name Dose Route Start Last Admin Trade Name Freq PRN Reason Stop Dose Admin Hydrocodone Bitart/Acetaminophen 1 tab 06/01/20 21:32 06/05/20 08:27 Hydrocodone/Acetaminophen 5/325 Mg Tablet PO 1 tab Q4H PRN Administration Moderate Pain (4-6) Albuterol Sulfate 2 puff 06/03/20 13:00 06/05/20 18:38 Proventil Inhaler 6.7 G (200 Inhalations) INH Not Given [id number] MARYELLEN Albuterol/Ipratropium 3 ml 06/05/20 19:00 06/05/20 18:38 Ipratropium/Albuterol Sulfate 3 Ml Neb NEB 06/06/20 19:01 3 ml [id number] MARYELLEN Administration Aspirin 81 mg 06/02/20 09:00 06/04/20 08:56 Aspirin 81 Mg Enteric Coated Tablet PO 81 mg DAILY MARYELLEN Administration Atorvastatin Calcium 10 mg 06/02/20 21:00 06/04/20 20:57 Atorvastatin Calcium 10 Mg Tab PO 10 mg HS MARYELLEN Administration Carbamazepine 400 mg 06/02/20 09:00 06/05/20 08:26 Carbamazepine 200 Mg Tab PO 400 mg BID MARYELLEN Administration Clonidine 0.2 mg 06/02/20 09:00 06/05/20 08:27 Clonidine 0.2 Mg Tab PO 0.2 mg TID MARYELLEN Administration Ezetimibe 10 mg 06/02/20 21:00 06/04/20 20:57 Ezetimibe 10 Mg Tab PO 10 mg HS MARYELLEN Administration Enoxaparin Sodium 90 mg 06/02/20 21:00 06/05/20 11:31 Enoxaparin Sodium 100 Mg/Ml Syringe SC Not Given 09,2099 MARYELLEN Fenofibrate 145 mg 06/02/20 21:00 06/04/20 20:57 Fenofibrate Nanocrystallized 145 Mg Tab PO 145 mg HS MARYELLEN Administration Gabapentin 600 mg 06/01/20 23:59 06/05/20 12:39 Gabapentin 300 Mg Cap PO Not Given Q6HR MARYELLEN Hydralazine HCl 10 mg 06/02/20 06:25 06/05/20 03:12 Hydralazine 20 Mg/Ml Vial SLOW IVP 10 mg Q4H PRN Administration SBP Greater Than 170 Nicardipine HCl 25 mg/ Sodium 250 mls @ 0 mls/hr 06/02/20 06:30 06/05/20 15:44 Chloride IVPB 250 mls INF MARYELLEN Administration Protocol Titrate Nitroglycerin/Dextrose 250 mls @ 0 mls/hr 06/02/20 09:45 06/02/20 10:37 Nitroglycerin 50 Mg/250 Ml Bot IVPB 250 mls INF MARYELLEN Administration Protocol As Directed Cefepime HCl 1 gm/ Sodium 100 mls @ 200 mls/hr 06/03/20 21:00 06/05/20 08:28 Chloride IVPB 100 mls Q12HR MARYELLEN Administration Levofloxacin 750 mg/ Device 150 mls @ 100 mls/hr 06/03/20 14:00 06/05/20 14:33 IVPB 150 mls 1400 MARYELLEN Administration Levothyroxine Sodium 25 mcg 06/02/20 06:00 06/05/20 06:49 Levothyroxine Sodium 25 Mcg Tab PO 25 mcg 0600 MARYELLEN Administration Methylprednisolone Sodium Succinate 40 mg 06/03/20 18:00 06/05/20 17:29 Methylprednisolone Sod Succ 40 Mg Vial IVP 40 mg Q6HR MARYELLEN Administration Morphine Sulfate 4 mg 06/02/20 08:20 06/05/20 00:42 Morphine 4 Mg/Ml Vial SLOW IVP 4 mg Q4H PRN Administration Severe Pain (7-10) Nifedipine 30 mg 06/02/20 09:00 06/05/20 08:26 Nifedipine Xl 30 Mg Tab PO 30 mg DAILY MARYELLEN Administration Ondansetron HCl 4 mg 06/01/20 21:32 06/02/20 06:14 Ondansetron Pf 4 Mg/2 Ml Vial IVP 4 mg Q6H PRN Administration Nausea/Vomiting Sodium Chloride 10 ml 06/02/20 09:00 06/05/20 08:28 Flush - Normal Saline 10 Ml Syringe IVF 10 ml Q12HR MARYELLEN Administration Verapamil HCl 120 mg 06/04/20 09:00 06/05/20 08:27 Verapamil 120 Mg Tab PO 120 mg TID MARYELLEN Administration - Exam General Appearance: ill appearing General - other findings: sedate on mech vent ENT - other findings: ETT in place Neck: supple, symmetric, no JVD, no thyromegaly, no lymphadenopathy Heart: RRR, no gallops, no rubs, normal peripheral pulses Heart - other findings: S1, S2 Respiratory: tachypneic Respiratory - other findings: diminished bilat, coarse sounds in bases Gastrointestinal: soft, non-tender, non-distended, normal bowel sounds Extremities: no cyanosis, no clubbing, no edema Neurological - other findings: sedate on mech vent Psychiatric: somnolent, lethargic Hosp A/P (1) Pneumonia due to COVID-19 virus Code(s): U07.1 - COVID-19; J12.82 - Status: Acute Plan: Continue Cefepime/Levaquin/Solumedrol/Lovenox/Vit C/Zinc, no Remdesivir due to mech ventilation (2) Acute respiratory failure with hypoxia Code(s): J96.01 - ACUTE RESPIRATORY FAILURE WITH HYPOXIA Status: Acute Plan: Mech ventilation, Pulmonology following, serial PCXR/ABG (3) Hypertensive emergency Code(s): I16.1 - HYPERTENSIVE EMERGENCY Status: Acute Plan: Improved, resume home BP regimen, serial BP monitoring (4) NSTEMI (non-ST elevated myocardial infarction) Code(s): I21.4 - NON-ST ELEVATION (NSTEMI) MYOCARDIAL INFARCTION Status: Acute Plan: Likley Type II myocardial infarction, continue Lovenox (5) Seizures Code(s): R56.9 - UNSPECIFIED CONVULSIONS Status: Chronic - Plan continue antibiotics, social welfare research worker, respiratory therapy, DVT proph w/SCDs Continue critical support Mech ventilation with SIMV Continue Cefepime/Levaquin Add Vit C/Zinc Continue Lovenox Continue Solumedrol AM lab: BMP, CBC, ABG PCXR in am
[2020-06-05] MEDS: Aspirin 81 mg Enteric Coated Tablet PO SCH (19:26)
[2020-06-05] MEDS: Ezetimibe 10 MG TAB PO SCH (20:02)
[2020-06-05] MEDS: Fenofibrate Nanocrystallized 145 MG TAB PO SCH (20:02)
[2020-06-05] MEDS: Atorvastatin Calcium 10 MG TAB PO SCH (20:02)
[2020-06-06] MEDS: methylPREDNISolone Sod Succ 40 MG VIAL IVP SCH ×3 (00:01→20:45)
[2020-06-06] MEDS: Gabapentin 300 MG CAP PO SCH ×2 (00:01→05:03)
[2020-06-06] MEDS: Morphine 4 MG/ML VIAL SLOW IVP PRN ×2 (02:52→22:50)
[2020-06-06 04:33] LABS: #Lymphocytes 1.7 thou/uL (1.20-3.40); #Monocytes 0.7 thou/uL (0.11-0.59); #Neutrophils 11.9 thou/uL (1.40-6.50); %Basophils 0.1 % (0.0-1.0); %Eosinophils 0.3 % (0.0-10.0); %Lymphocytes 11.5 % (21.0-51.0); %Monocytes 4.8 % (0.0-10.0); %Neutrophils 83.2 % (42.0-75.0); Hemoglobin 8.5 g/dL (14.0-18.0); Mean Corpuscular HGB CONC 33.4 g/dL (32.0-36.0); Mean Corpuscular Hemoglobin 30.4 pg (27.0-31.0); Mean Corpuscular Volume 90.9 fL (78.0-98.0); Mean Platelet Volume 7.1 fL (7.4-10.4); Platelet Count 344 thou/uL (130-400); RBC Distribution Width 14.4 % (11.5-14.5); Red Blood Cell (RBC) Count 2.78 mill/uL (4.70-6.10); White Blood Cell (WBC) Count 14.3 thou/uL (4.8-10.8)
[2020-06-06] MEDS: Levothyroxine Sodium 25 MCG TAB PO SCH (05:03)
[2020-06-06 05:04] LABS: Anion Gap 13 mmol/L (10-20); BUN (Urea Nitrogen) 38 mg/dL (8.4-25.7); Calc. Creatinine Clearance 154 mL/min (70-130); Carbon Dioxide 25 mmol/L (23-31); Chloride 100 mmol/L (98-107); Glucose 102 mg/dL (80-115); Potassium 3.7 mmol/L (3.5-5.1); Sodium 134 mmol/L (136-145)
--- NOTE | 2020-06-06 08:17 | RAD ---
Chest one view HISTORY: Dyspnea. Follow-up. COMPARISON: 06/05/2020. FINDINGS: Cardiac silhouette is magnified by projection. Pulmonary vasculature upper limits of normal . Pleural and parenchymal opacity at the right base has increased since the prior exam. Blunting of the left lateral costophrenic angles now evident. Mediastinum is midline. Endotracheal catheter and nasogastric tube in place. Left subclavian central venous catheter no longer visible. No evidence of pneumothorax. IMPRESSION : Interval increase in right pleural fluid and basilar atelectasis. Small left pleural effusion. Removal of the left subclavian central venous catheter.
[2020-06-06] MEDS: carBAMazepine 200 MG TAB PO SCH ×2 (08:20→20:45)
[2020-06-06] MEDS: Zinc Sulfate 220 MG CAP PER TUBE SCH (08:20)
[2020-06-06] MEDS: Ascorbic Acid 500 mg Chewable Tablet PER TUBE SCH (08:20)
[2020-06-06] MEDS: Aspirin 81 mg Enteric Coated Tablet PO SCH (08:20)
[2020-06-06] MEDS: cloNIDine 0.2 MG TAB PO SCH ×2 (08:21→15:50)
[2020-06-06] MEDS: NIFEdipine XL 30 MG TAB PO SCH (08:21)
[2020-06-06] MEDS: Cefepime 1 GM in Sodium Chloride 0.9% 100 ML IVPB SCH ×2 (08:22→20:45)
[2020-06-06] MEDS: Enoxaparin Sodium 100 MG/ML SYRINGE SC SCH ×2 (08:22→09:58)
[2020-06-06] MEDS: Verapamil 120 MG TAB PO SCH ×2 (08:22→15:50)
[2020-06-06] MEDS: PROVENTIL INHALER 6.7 G (200 INHALATIONS) INH SCH ×3 (08:26→19:36)
[2020-06-06 08:27] LABS: Actual Bicarbonate (HCO3a) 23.2 mEq/L (22-28); Base Excess (BEa) 2.3 mEq/L (-2.0 to +3.0); Carboxyhemoglobin (COHb) 0.6 gm% (0.0-3.0); Hemoglobin (Hb) 8.9 g/dL (14.0-18.0); Potassium - ABG Lab 3.69 mmol/L (3.70-5.30)
[2020-06-06 08:28] LABS: pH, Arterial 7.61 (7.35-7.45)
[2020-06-06 08:29] LABS: ALV-art Gradient 261.875 mmHg (0-20); CO2 Tension 23.7 mmHg (35.0-45.0); Puncture Site RRA
[2020-06-06] MEDS ORDERED: DC Sedation Protocol FS ONE (10:55)
--- NOTE | 2020-06-06 11:23 | PRG ---
DATE OF SERVICE: 06/06/2020 SUBJECTIVE: Kareem Smith was re-intubated yesterday because he became progressively more obtunded after he was extubated. His pO2 was 58, his pCO2 was 52, and pH was 7.32. Prior to that, his pCO2 was 94 prior to intubation, pO2 was 59, and pH was 7.10 on a BiPAP. This morning, his pO2 is 65, pCO2 is 23, pH is 7.61, rate of 20, 50%, and PEEP of 7. X-ray shows infiltrates. He is sedated. OBJECTIVE: VITAL SIGNS: Pulse 116, blood pressure 120/68, respiratory rate 18. His I's and O's are positive. CHEST: No wheezing. No crackles. CARDIAC: Normal S1 and normal S2. No gallops. ABDOMEN: No masses. LABORATORY DATA: White count 14,000, H and H 8 and 24, platelet count is normal. He is still bleeding from his subclavian site. He is still getting full-dose Lovenox for acute coronary syndrome. ASSESSMENT: Leon positive pneumonia, respiratory failure, chronic obstructive pulmonary disease, sleep apnea, coronary syndrome. PLAN: Minimize sedation. Slow weaning now. Vent is being adjusted. Nutrition and PT. One-half hour of critical care time. Job ID: [id number]
[2020-06-06] MEDS ORDERED: Bacteriostatic Water 30 ML VIAL FS PRN (11:30)
--- NOTE | 2020-06-06 12:06 | PRG ---
DATE OF SERVICE: 06/06/2020 SUBJECTIVE: Mr. Smith is having recurrent bleeding at the central line site. The nurse is having whole pressure again currently. He did receive enoxaparin last night, did not receive it this morning. The nurse said there has still been quite a bit of oozing from that site requiring prolonged pressure. OBJECTIVE: VITAL SIGNS: His blood pressure 120/68, pulse is 110. Physical exam not done. Trying to reduce contact with COVID positive patient. The patient did require packed red blood cells yesterday, but despite that, the hemoglobin is only 8.5. ASSESSMENT: 1. Bleeding from the central line site. 2. On full dose Lovenox, but dose held this morning. 3. COVID pneumonia. PLAN: Hold Lovenox today, resume tomorrow at lower dose. No other recommendations at the present time. Job ID: [id number]
--- NOTE | 2020-06-06 16:40 | EKG ---
Test Reason : HTN Blood Pressure : / mmHG Vent. Rate : 111 BPM Atrial Rate : 111 BPM P-R Int : 162 ms QRS Dur : 094 ms QT Int : 346 ms P-R-T Axes : 046 012 097 degrees QTc Int : 470 ms Sinus tachycardia Abnormal ECG #1 Left ventricular hypertrophy with strain pattern Confirmed by ISH Garcia, MARIELLE ([id number]), purchasing expeditor TED PIMENTEL ([id number] on 06/06/2020 4:40:02 PM Referred By: Confirmed By:MARIELLE DENG M.D.
--- NOTE | 2020-06-06 18:24 | PDOC.HOSPP ---
- Subjective Subjective: Was seen examined at bedside. Discussed with nursing staff. Blood pressure has been quite labile. He was reintubated yesterday as he became progressively more obtunded. - Objective Vital Signs & Weight: Vital Signs (12 hours) Temp Pulse Resp BP Pulse Ox 06/06/20 16:00 97.6 F 20 06/06/20 15:50 159/94 H 06/06/20 15:06 115 H 115/88 06/06/20 15:05 115 H 19 100 06/06/20 14:00 16 06/06/20 12:53 118 H 17 99 06/06/20 12:00 99.5 F 15 06/06/20 10:42 116 H 122/68 06/06/20 10:41 116 H 24 H 100 06/06/20 10:00 12 06/06/20 08:21 109 H 160/88 H 06/06/20 08:15 109 H 22 H 99 06/06/20 08:05 107 H 139/80 98 06/06/20 08:00 99.2 F 22 H 96 Weight Admit Weight 225 lb Weight 225 lb 4.999 oz Most Recent Monitor Data Heart Rate from ECG 97 NIBP 135/73 NIBP BP-Mean 93 Respiration from ECG 27 SpO2 100 I&O: 06/05/20 06/06/20 06/07/20 06:59 06:59 06:59 Intake Total 810 1322 190 Output Total 1005 1540 410 Balance -195 -218 -220 Result Diagrams: 06/06/20 03:50 06/06/20 03:50 Hospitalist ROS - Medication Medications: Active Medications Generic Name Dose Route Start Last Admin Trade Name Thor PRN Reason Stop Dose Admin Albuterol Sulfate 2 puff 06/03/20 13:00 06/06/20 12:48 Proventil Inhaler 6.7 G (200 Inhalations) INH Not Given [id number] MARYELLEN Albuterol/Ipratropium 3 ml 06/05/20 19:00 06/06/20 15:05 Ipratropium/Albuterol Sulfate 3 Ml Neb NEB 06/06/20 19:01 3 ml [id number] MARYELLEN Administration Ascorbic Acid 1,000 mg 06/06/20 09:00 06/06/20 08:20 Ascorbic Acid 500 Mg Chewable Tablet PER TUBE 1,000 mg DAILY MARYELLEN Administration Aspirin 81 mg 06/02/20 09:00 06/06/20 08:20 Aspirin 81 Mg Enteric Coated Tablet PO 81 mg DAILY MARYELLEN Administration Atorvastatin Calcium 10 mg 06/02/20 21:00 06/05/20 20:02 Atorvastatin Calcium 10 Mg Tab PO 10 mg HS MARYELLEN Administration Carbamazepine 400 mg 06/02/20 09:00 06/06/20 08:20 Carbamazepine 200 Mg Tab PO 400 mg BID MARYELLEN Administration Ezetimibe 10 mg 06/02/20 21:00 06/05/20 20:02 Ezetimibe 10 Mg Tab PO 10 mg HS MARYELLEN Administration Fenofibrate 145 mg 06/02/20 21:00 06/05/20 20:02 Fenofibrate Nanocrystallized 145 Mg Tab PO 145 mg HS MARYELLEN Administration Hydralazine HCl 10 mg 06/02/20 06:25 06/05/20 03:12 Hydralazine 20 Mg/Ml Vial SLOW IVP 10 mg Q4H PRN Administration SBP Greater Than 170 Nicardipine HCl 25 mg/ Sodium 250 mls @ 0 mls/hr 06/02/20 06:30 06/05/20 15:44 Chloride IVPB 250 mls INF MARYELLEN Administration Protocol Titrate Nitroglycerin/Dextrose 250 mls @ 0 mls/hr 06/02/20 09:45 06/02/20 10:37 Nitroglycerin 50 Mg/250 Ml Bot IVPB 250 mls INF MARYELLEN Administration Protocol As Directed Cefepime HCl 1 gm/ Sodium 100 mls @ 200 mls/hr 06/03/20 21:00 06/06/20 08:22 Chloride IVPB 100 mls Q12HR MARYELLEN Administration Levofloxacin 750 mg/ Device 150 mls @ 100 mls/hr 06/03/20 14:00 06/06/20 14:03 IVPB 150 mls 1400 MARYELLEN Administration Levothyroxine Sodium 25 mcg 06/02/20 06:00 06/06/20 05:03 Levothyroxine Sodium 25 Mcg Tab PO 25 mcg 0600 MARYELLEN Administration Ondansetron HCl 4 mg 06/01/20 21:32 06/02/20 06:14 Ondansetron Pf 4 Mg/2 Ml Vial IVP 4 mg Q6H PRN Administration Nausea/Vomiting Sodium Chloride 10 ml 06/02/20 09:00 06/06/20 08:23 Flush - Normal Saline 10 Ml Syringe IVF 10 ml Q12HR MARYELLEN Administration Zinc Sulfate 220 mg 06/06/20 09:00 06/06/20 08:20 Zinc Sulfate 220 Mg Cap PER TUBE 220 mg DAILY MARYELLEN Administration - Exam General - other findings: Intubated, follow command. Eye: PERRL ENT: normocephalic atraumatic Neck: supple Heart: RRR Respiratory: rhonchi Gastrointestinal: soft Extremities: no cyanosis Skin: normal turgor Neurological - other findings: Patient remains intubated, follow command. Hosp A/P - Plan Patient is unfortunate 60 years old gentleman who has significant past medical history for hypothyroidism, history of CVA, history of brain abscess, MS, seizure disorder, paraplegic and nonambulatory, [facility] resident, who initially presented to the ED with headache, he was found hypotensive emergency. Patient was started on Cardene drip for blood pressure control. His COVID test later came back positive, and went into respiratory failure subsequently intubated and re-intubated on 06/05/2020. Acute hypoxic respiratory failure --reintubated on 06/05/20. cont steroid, empiric IV abx. --cont vent mgt as per pulmonology COVID-19 pneumonia --s/p convalescent plasma. Management as above Hypertensive emergency --Patient initially required Cardene drip. He has been weaned off, however blood pressures remain labile. --change to BB in light of NSTEMI Type II NSTEMI --Lovenox dose adjust d/t bleeding from central line --add BB. Appreciate cardiology input Anemia of acute blood loss --s/p 1U PRBC transfusion. rpt labs in AM Seizure disorder --resume home meds. Polypharmacy
[2020-06-06] MEDS: Fenofibrate Nanocrystallized 145 MG TAB PO SCH (20:45)
[2020-06-06] MEDS: Escitalopram Oxalate 10 mg Tablet PO SCH (20:45)
[2020-06-06] MEDS: Lactinex Tablet PO SCH (20:45)
[2020-06-06] MEDS: Atorvastatin Calcium 10 MG TAB PO SCH (20:45)
[2020-06-06] MEDS: Ezetimibe 10 MG TAB PO SCH (20:45)
[2020-06-06] MEDS: Lacosamide 50 mg Tablet PO SCH (20:46)
[2020-06-06] MEDS: hydrALAZINE 20 MG/ML VIAL SLOW IVP PRN (20:46)
[2020-06-07] MEDS: PROVENTIL INHALER 6.7 G (200 INHALATIONS) INH SCH ×4 (01:23→19:26)
[2020-06-07] MEDS: hydrALAZINE 20 MG/ML VIAL SLOW IVP PRN ×3 (02:32→14:06)
[2020-06-07] MEDS: Morphine 4 MG/ML VIAL SLOW IVP PRN ×2 (04:26→21:28)
[2020-06-07 04:48] LABS: Anion Gap 12 mmol/L (10-20); BUN (Urea Nitrogen) 40 mg/dL (8.4-25.7); Calc. Creatinine Clearance 160 mL/min (70-130); Calcium 8.4 mg/dL (7.8-10.44); Carbon Dioxide 28 mmol/L (23-31); Chloride 99 mmol/L (98-107); Glucose 122 mg/dL (80-115); Potassium 3.8 mmol/L (3.5-5.1); Sodium 135 mmol/L (136-145)
[2020-06-07 05:04] LABS: Band 9 % (5-11); Eosinophils 1 % (0-10); Hemoglobin 8.7 g/dL (14.0-18.0); Lymphocytes 9 % (21-51); MDiff Complete? YES; Mean Corpuscular HGB CONC 32.2 g/dL (32.0-36.0); Mean Corpuscular Hemoglobin 29.8 pg (27.0-31.0); Mean Corpuscular Volume 92.5 fL (78.0-98.0); Monocytes 4 % (0-10); Neutrophil 77 % (42-75); Platelet Count 336 thou/uL (130-400); RBC Distribution Width 14.5 % (11.5-14.5); Red Blood Cell (RBC) Count 2.92 mill/uL (4.70-6.10); White Blood Cell (WBC) Count 19.3 thou/uL (4.8-10.8)
[2020-06-07] MEDS: Levothyroxine Sodium 25 MCG TAB PO SCH (05:44)
[2020-06-07] MEDS ORDERED: Carvedilol 6.25 MG TAB PO SCH (08:00)
[2020-06-07] MEDS: Zinc Sulfate 220 MG CAP PER TUBE SCH (08:32)
[2020-06-07] MEDS: Lactinex Tablet PO SCH ×2 (08:32→20:52)
[2020-06-07] MEDS: Ascorbic Acid 500 mg Chewable Tablet PER TUBE SCH (08:32)
[2020-06-07] MEDS: Enoxaparin Sodium 40 MG/0.4 ML SYRINGE SC SCH ×2 (08:32→20:52)
[2020-06-07] MEDS: Aspirin 81 mg Enteric Coated Tablet PO SCH (08:32)
[2020-06-07] MEDS: carBAMazepine 200 MG TAB PO SCH ×2 (08:32→20:52)
[2020-06-07] MEDS: methylPREDNISolone Sod Succ 40 MG VIAL IVP SCH ×2 (08:33→20:53)
[2020-06-07] MEDS: Cefepime 1 GM in Sodium Chloride 0.9% 100 ML IVPB SCH ×2 (08:33→20:53)
[2020-06-07 08:49] LABS: Actual Bicarbonate (HCO3a) 28.7 mEq/L (22-28); Base Excess (BEa) 4.8 mEq/L (-2.0 to +3.0); CO2 Tension 39.8 mmHg (35.0-45.0); Calcium, Ionized (arterial) 1.15 mmol/L (1.12-1.30); Carboxyhemoglobin (COHb) 0.7 gm% (0.0-3.0); Hemoglobin (Hb) 8.4 g/dL (14.0-18.0); Potassium - ABG Lab 3.58 mmol/L (3.70-5.30); pH, Arterial 7.48 (7.35-7.45)
[2020-06-07 08:52] LABS: Puncture Site RRA
[2020-06-07] MEDS: Dutasteride 0.5 MG CAP PO SCH (09:33)
[2020-06-07] MEDS ORDERED: Carvedilol 6.25 MG TAB PER TUBE SCH (10:04)
--- NOTE | 2020-06-07 10:24 | PRG ---
DATE OF SERVICE: 06/07/2020 SUBJECTIVE: Mr. Smiht remains intubated. Blood pressure is 187/104, pulse is 90. Bleeding from the central line stopped after skipping the Lovenox yesterday and then he is on reduced dose today. OBJECTIVE: Physical exam was not done today due to COVID positive. ASSESSMENT: 1. Bleeding stopped after holding Lovenox yesterday and reducing dose today. 2. COVID positive. 3. Anemia, stable, hemoglobin is 8.7. No changes will be made today. Dr. Loza to return tomorrow. Job ID: [id number]
[2020-06-07] MEDS: Lacosamide 50 mg Tablet PO SCH ×2 (10:33→20:54)
--- NOTE | 2020-06-07 11:26 | PRG ---
DATE OF SERVICE: 06/07/2020 SUBJECTIVE: Kareem Smith is a 60-year-old gentleman, intubated on the vent. OBJECTIVE: VITAL SIGNS: Temperature is 97, his blood pressure is 158/88, respiratory rate is 15, saturation is 100%. His I's and O's have been negative. CHEST: No wheezing. No crackles. CARDIAC: Normal S1, S2. No gallops. LABORATORY DATA: White count 19,000, H and H are , platelet count is normal, 77 segs, 9 bands. PO2 is 129, pCO2 of 39, pH 7.48. Lytes are normal. ASSESSMENT: Respiratory failure, aspiration, berman-positive pneumonia, cerebrovascular accident, severe deconditioning, [id number] myocardial infarction. PLAN: I am concerned that he failed extubation, maybe from his CVA, unable to handle secretions. We are going to cut back his rate again. He is off all sedation. Supportive care, PT. Start weaning slowly. One-half hour of critical are time. Job ID: [id number]
[2020-06-07] MEDS: Carvedilol 6.25 MG TAB PO SCH (17:50)
--- NOTE | 2020-06-07 18:18 | PDOC.HOSPP ---
- Subjective Subjective: pt was seen and examined at bedside. Hb stable. 8.7. remains intubated, follow commands - Objective Vital Signs & Weight: Vital Signs (12 hours) Temp Pulse Resp BP Pulse Ox 06/07/20 18:00 25 H 06/07/20 17:50 154/84 H 06/07/20 16:00 96.3 F L 25 H 06/07/20 14:42 90 06/07/20 14:06 90 201/110 H 06/07/20 14:00 20 06/07/20 12:00 96.7 F L 20 06/07/20 11:23 87 108/63 06/07/20 10:33 158/88 H 06/07/20 10:00 13 06/07/20 08:32 173/93 H 06/07/20 08:30 105 H 06/07/20 08:00 97.7 F 15 06/07/20 07:32 100 06/07/20 07:04 96 209/119 H Weight Admit Weight 225 lb Weight 225 lb 4.999 oz Most Recent Monitor Data Heart Rate from ECG 92 NIBP 166/87 NIBP BP-Mean 113 Respiration from ECG 26 SpO2 100 I&O: 06/06/20 06/07/20 06/08/20 06:59 06:59 06:59 Intake Total 1322 1053 1306 Output Total 1540 1735 1135 Balance -218 -682 171 Result Diagrams: 06/07/20 04:01 06/07/20 04:01 Hospitalist ROS - Medication Medications: Active Medications Generic Name Dose Route Start Last Admin Trade Name Freq PRN Reason Stop Dose Admin Acidophilus 1 tab 06/06/20 21:00 06/07/20 08:32 Lactinex Tablet PO 1 tab BID MARYELLEN Administration Albuterol Sulfate 2 puff 06/03/20 13:00 06/07/20 14:42 Proventil Inhaler 6.7 G (200 Inhalations) INH 2 puff [id number] MARYELLEN Administration Ascorbic Acid 1,000 mg 06/06/20 09:00 06/07/20 08:32 Ascorbic Acid 500 Mg Chewable Tablet PER TUBE 1,000 mg DAILY MARYELLEN Administration Aspirin 81 mg 06/02/20 09:00 06/07/20 08:32 Aspirin 81 Mg Enteric Coated Tablet PO 81 mg DAILY MARYELLEN Administration Atorvastatin Calcium 10 mg 06/02/20 21:00 06/06/20 20:45 Atorvastatin Calcium 10 Mg Tab PO 10 mg HS MARYELLEN Administration Carbamazepine 400 mg 06/02/20 09:00 06/07/20 08:32 Carbamazepine 200 Mg Tab PO 400 mg BID MARYELLEN Administration Carvedilol 12.5 mg 06/07/20 17:00 06/07/20 17:50 Carvedilol 6.25 Mg Tab PO 12.5 mg BID-WM MARYELLEN Administration Dutasteride 0.5 mg 06/07/20 09:00 06/07/20 09:33 Dutasteride 0.5 Mg Cap PO Not Given DAILY MARYELLEN Ezetimibe 10 mg 06/02/20 21:00 06/06/20 20:45 Ezetimibe 10 Mg Tab PO 10 mg HS MARYELLEN Administration Enoxaparin Sodium 40 mg 06/07/20 09:00 06/07/20 08:32 Enoxaparin Sodium 40 Mg/0.4 Ml Syringe SC 40 mg 0900,2100 MARYELLEN Administration Escitalopram Oxalate 10 mg 06/06/20 21:00 06/06/20 20:45 Escitalopram Oxalate 10 Mg Tablet PO 10 mg HS MARYELLEN Administration Fenofibrate 145 mg 06/02/20 21:00 06/06/20 20:45 Fenofibrate Nanocrystallized 145 Mg Tab PO 145 mg HS MARYELLEN Administration Hydralazine HCl 10 mg 06/02/20 06:25 06/07/20 14:06 Hydralazine 20 Mg/Ml Vial SLOW IVP 10 mg Q4H PRN Administration SBP Greater Than 170 Nicardipine HCl 25 mg/ Sodium 250 mls @ 0 mls/hr 06/02/20 06:30 06/05/20 15:44 Chloride IVPB 250 mls INF MARYELLEN Administration Protocol Titrate Nitroglycerin/Dextrose 250 mls @ 0 mls/hr 06/02/20 09:45 06/02/20 10:37 Nitroglycerin 50 Mg/250 Ml Bot IVPB 250 mls INF MARYELLEN Administration Protocol As Directed Cefepime HCl 1 gm/ Sodium 100 mls @ 200 mls/hr 06/03/20 21:00 06/07/20 08:33 Chloride IVPB 100 mls Q12HR MARYELLEN Administration Levofloxacin 750 mg/ Device 150 mls @ 100 mls/hr 06/03/20 14:00 06/07/20 14 :06 IVPB 150 mls 1400 MARYELLEN Administration Lacosamide 100 mg 06/06/20 21:00 06/07/20 10:33 Lacosamide 50 Mg Tablet PO 100 mg BID MARYELLEN Administration Levothyroxine Sodium 25 mcg 06/02/20 06:00 06/07/20 05:44 Levothyroxine Sodium 25 Mcg Tab PO 25 mcg 0600 MARYELLEN Administration Methylprednisolone Sodium Succinate 40 mg 06/06/20 21:00 06/07/20 08:33 Methylprednisolone Sod Succ 40 Mg Vial IVP 40 mg BID MARYELLEN Administration Morphine Sulfate 4 mg 06/06/20 10:56 06/07/20 04:26 Morphine 4 Mg/Ml Vial SLOW IVP 4 mg Q4H PRN Administration Congestion Ondansetron HCl 4 mg 06/01/20 21:32 06/02/20 06:14 Ondansetron Pf 4 Mg/2 Ml Vial IVP 4 mg Q6H PRN Administration Nausea/Vomiting Sodium Chloride 10 ml 06/02/20 09:00 06/07/20 08:34 Flush - Normal Saline 10 Ml Syringe IVF 10 ml Q12HR MARYELLEN Administration Zinc Sulfate 220 mg 06/06/20 09:00 06/07/20 08:32 Zinc Sulfate 220 Mg Cap PER TUBE 220 mg DAILY MARYELLEN Administration - Exam General - other findings: intubated, follow commands Eye: PERRL ENT: normocephalic atraumatic Neck: supple, symmetric Heart: RRR, no murmur Respiratory: rhonchi Gastrointestinal: soft Extremities: no cyanosis Skin: normal turgor Musculoskeletal - other findings: intubated, follow commands Hosp A/P - Plan Patient is unfortunate 60 years old gentleman who has significant past medical history for hypothyroidism, history of CVA, history of brain abscess, MS, seizure disorder, paraplegic and nonambulatory, [facility] resident, who in [place] presented to the ED with headache, he was found hypertensive emergency. Patient was started on Cardene drip for blood pressure control. His COVID test later came back positive, and went into respiratory failure subsequently intubated and re-intubated on 06/05/2020. Acute hypoxic respiratory failure --reintubated on 06/05/20. cont steroid, empiric IV abx. --cont vent mgt as per pulmonology COVID-19 pneumonia --s/p convalescent plasma. Management as above Hypertensive emergency --Patient initially required Cardene drip. He has been weaned off, however, blood pressures remain labile. --changed to BB in light of NSTEMI, dose incr today Type II NSTEMI --Lovenox dose adjust d/t bleeding from central line --add BB. Appreciate cardiology input Anemia of acute blood loss --s/p 1U PRBC transfusion. rpt Hb stable. Seizure disorder --resume home meds. Polypharmacy
[2020-06-07] MEDS: Ezetimibe 10 MG TAB PO SCH (20:52)
[2020-06-07] MEDS: Atorvastatin Calcium 10 MG TAB PO SCH (20:52)
[2020-06-07] MEDS: Escitalopram Oxalate 10 mg Tablet PO SCH (20:52)
[2020-06-07] MEDS: Fenofibrate Nanocrystallized 145 MG TAB PO SCH (20:52)
[2020-06-08] MEDS: PROVENTIL INHALER 6.7 G (200 INHALATIONS) INH SCH ×4 (00:16→20:09)
[2020-06-08] MEDS: Morphine 4 MG/ML VIAL SLOW IVP PRN ×3 (03:24→20:36)
[2020-06-08 04:32] LABS: Anion Gap 12 mmol/L (10-20); BUN (Urea Nitrogen) 46 mg/dL (8.4-25.7); Calc. Creatinine Clearance 178 mL/min (70-130); Calcium 8.6 mg/dL (7.8-10.44); Carbon Dioxide 30 mmol/L (23-31); Chloride 98 mmol/L (98-107); Glucose 127 mg/dL (80-115); Potassium 4.4 mmol/L (3.5-5.1); Sodium 136 mmol/L (136-145)
[2020-06-08] MEDS: Levothyroxine Sodium 25 MCG TAB PO SCH (05:20)
[2020-06-08 05:37] LABS: Band 17 % (5-11); Hemoglobin 8.3 g/dL (14.0-18.0); Lymphocytes 19 % (21-51); MDiff Complete? YES; Mean Corpuscular HGB CONC 31.4 g/dL (32.0-36.0); Mean Corpuscular Hemoglobin 29.1 pg (27.0-31.0); Mean Corpuscular Volume 92.5 fL (78.0-98.0); Mean Platelet Volume 7.1 fL (7.4-10.4); Monocytes 3 % (0-10); Myelocyte 1 % (0-0); Neutrophil 60 % (42-75); Nucleated RBC 1 % (0); Platelet Count 318 thou/uL (130-400); RBC Distribution Width 14.1 % (11.5-14.5); Red Blood Cell (RBC) Count 2.84 mill/uL (4.70-6.10); White Blood Cell (WBC) Count 14.5 thou/uL (4.8-10.8)
[2020-06-08] MEDS: hydrALAZINE 20 MG/ML VIAL SLOW IVP PRN (05:46)
--- NOTE | 2020-06-08 07:57 | RAD ---
Chest one view HISTORY: Dyspnea. Intubated. Follow-up. COMPARISON: 06/06/2020. FINDINGS: Cardiac silhouette is magnified by projection. Pulmonary vasculature within normal limits. Mediastinum is midline. Lines and tubes unchanged in position. Ill-defined infiltrate and pleural fluid at the right base similar in appearance to the prior study. Blunting of the left lateral costophrenic angle is unchanged. No evidence of pneumothorax. IMPRESSION : Small bilateral pleural effusions and right basilar infiltrate are stable.
[2020-06-08] MEDS: Cefepime 1 GM in Sodium Chloride 0.9% 100 ML IVPB SCH ×2 (08:55→20:37)
[2020-06-08] MEDS: Aspirin 81 mg Enteric Coated Tablet PO SCH (08:59)
[2020-06-08] MEDS: Dutasteride 0.5 MG CAP PO SCH (08:59)
[2020-06-08] MEDS: Carvedilol 6.25 MG TAB PO SCH ×2 (09:00→17:22)
[2020-06-08] MEDS: Ascorbic Acid 500 mg Chewable Tablet PER TUBE SCH (09:00)
[2020-06-08] MEDS: carBAMazepine 200 MG TAB PO SCH ×2 (09:00→20:35)
[2020-06-08] MEDS: Zinc Sulfate 220 MG CAP PER TUBE SCH (09:00)
[2020-06-08] MEDS: Enoxaparin Sodium 40 MG/0.4 ML SYRINGE SC SCH ×2 (09:01→20:38)
[2020-06-08] MEDS: methylPREDNISolone Sod Succ 40 MG VIAL IVP SCH ×2 (09:01→20:37)
[2020-06-08] MEDS: Lactinex Tablet PO SCH ×2 (09:18→20:38)
[2020-06-08] MEDS: Lacosamide 50 mg Tablet PO SCH ×2 (09:21→20:38)
--- NOTE | 2020-06-08 09:22 | PRG ---
DATE OF SERVICE: 06/08/2020 SUBJECTIVE: Mr. Smith has not been seen by me since the 03 of June. The patient did require intubation due to continued shortness of breath. He was reintubated for difficulty with secretions. The history is obtained from the nurse. He is currently off all pressors. He is on a moderate dose of Coreg 12.5 mg one p.o. b.i.d. in addition to atorvastatin and aspirin. He is also on Lovenox 40 mg subcu q.12. OBJECTIVE: VITAL SIGNS: Blood pressure 118/62, pulse 82. Temperature, afebrile. Physical exam deferred due to COVID positive. PERTINENT LABORATORY DATA: Hemoglobin 8.3, hematocrit 26.3. BUN 46, creatinine 0.63. IMPRESSION: 1. COVID positive pneumonia. 2. [id number] myocardial infarction. 3. Respiratory failure. RECOMMENDATIONS: Continue current supportive care. The patient's labs on the from a cardiac standpoint were downtrending. Initial troponin was 0.756 and downtrend to 0.552. At this point, we will continue with supportive care. Job ID: [id number]
--- NOTE | 2020-06-08 10:06 | PRG ---
DATE OF SERVICE: 06/08/2020 SUBJECTIVE: Kareem Smith is a 60-year-old gentleman, who is on the vent with a backup rate. OBJECTIVE: VITAL SIGNS: Blood pressure 130/80, pulse 86, sats 100%. I's and O's have been good. CHEST: No wheezing. No crackles. CARDIAC: Normal S1, S2. No gallops. ABDOMEN: No masses. IMPRESSION: Respiratory failure, previous CVA, berman positive status. Failed extubation one time. X-ray shows a small right pleural effusion, probably CHF. PLAN: We are going to try once again CPAP trial and extubation in the next day or two. Overall, he is on antibiotics, steroids, supportive care. One-half hour of critical care time. Job ID: [id number]
[2020-06-08 11:38] LABS: Actual Bicarbonate (HCO3a) 30.3 mEq/L (22-28); Base Excess (BEa) 4.8 mEq/L (-2.0 to +3.0); CO2 Tension 50.8 mmHg (35.0-45.0); Calcium, Ionized (arterial) 1.19 mmol/L (1.12-1.30); Hemoglobin (Hb) 7.5 g/dL (14.0-18.0); O2 Tension (PaO2), arterial 62.2 mmHg (> 80.0); Potassium - ABG Lab 4.04 mmol/L (3.70-5.30); pH, Arterial 7.39 (7.35-7.45)
[2020-06-08 11:40] LABS: Puncture Site RRA
--- NOTE | 2020-06-08 17:58 | PDOC.HOSPP ---
- Subjective Subjective: awake and follow commands. BP controlled. - Objective Vital Signs & Weight: Vital Signs (12 hours) Temp Pulse Resp BP Pulse Ox 06/08/20 17:39 12 06/08/20 17:22 161/88 H 06/08/20 16:00 98.0 F 14 06/08/20 15:37 73 06/08/20 14:00 18 06/08/20 13:05 75 128/76 06/08/20 12:00 98.1 F 16 06/08/20 11:26 67 06/08/20 11:12 70 79/46 L 06/08/20 10:00 25 H 06/08/20 09:00 132/71 06/08/20 08:00 97.5 F L 23 H 100 06/08/20 06:00 16 Weight Admit Weight 225 lb Weight 225 lb 4.999 oz Most Recent Monitor Data Heart Rate from ECG 73 NIBP 161/88 NIBP BP-Mean 112 Respiration from ECG 18 SpO2 100 I&O: 06/07/20 06/08/20 06/09/20 06:59 06:59 06:59 Intake Total 1053 2177 1024 Output Total 1735 1555 615 Balance -682 622 409 Result Diagrams: 06/08/20 03:49 06/08/20 03:49 Radiology Reviewed by me: Yes EKG Reviewed by me: Yes Hospitalist ROS - Medication Medications: Active Medications Generic Name Dose Route Start Last Admin Trade Name Freq PRN Reason Stop Dose Admin Acidophilus 1 tab 06/06/20 21:00 06/08/20 09:18 Lactinex Tablet PO 1 tab BID MARYELLEN Administration Albuterol Sulfate 2 puff 06/03/20 13:00 06/08/20 13:03 Proventil Inhaler 6.7 G (200 Inhalations) INH 2 puff [id number] MARYELLEN Administration Ascorbic Acid 1,000 mg 06/06/20 09:00 06/08/20 09:00 Ascorbic Acid 500 Mg Chewable Tablet PER TUBE 1,000 mg DAILY MARYELLEN Administration Aspirin 81 mg 06/02/20 09:00 06/08/20 08:59 Aspirin 81 Mg Enteric Coated Tablet PO 81 mg DAILY MARYELLEN Administration Atorvastatin Calcium 10 mg 06/02/20 21:00 06/07/20 20:52 Atorvastatin Calcium 10 Mg Tab PO 10 mg HS MARYELLEN Administration Carbamazepine 400 mg 06/02/20 09:00 06/08/20 09:00 Carbamazepine 200 Mg Tab PO 400 mg BID MARYELLEN Administration Carvedilol 12.5 mg 06/07/20 17:00 06/08/20 17:22 Carvedilol 6.25 Mg Tab PO 12.5 mg BID-WM MARYELLEN Administration Dutasteride 0.5 mg 06/07/20 09:00 06/08/20 08:59 Dutasteride 0.5 Mg Cap PO 0.5 mg DAILY MARYELLEN Administration Ezetimibe 10 mg 06/02/20 21:00 06/07/20 20:52 Ezetimibe 10 Mg Tab PO 10 mg HS MARYELLEN Administration Enoxaparin Sodium 40 mg 06/07/20 09:00 06/08/20 09:01 Enoxaparin Sodium 40 Mg/0.4 Ml Syringe SC 40 mg 0900,2100 MARYELLEN Administration Escitalopram Oxalate 10 mg 06/06/20 21:00 06/07/20 20:52 Escitalopram Oxalate 10 Mg Tablet PO 10 mg HS MARYELLEN Administration Fenofibrate 145 mg 06/02/20 21:00 06/07/20 20:52 Fenofibrate Nanocrystallized 145 Mg Tab PO 145 mg HS MARYELLEN Administration Hydralazine HCl 10 mg 06/02/20 06:25 06/08/20 05:46 Hydralazine 20 Mg/Ml Vial SLOW IVP 10 mg Q4H PRN Administration SBP Greater Than 170 Nicardipine HCl 25 mg/ Sodium 250 mls @ 0 mls/hr 06/02/20 06:30 06/05/20 15 :44 Chloride IVPB 250 mls INF MARYELLEN Administration Protocol Titrate Nitroglycerin/Dextrose 250 mls @ 0 mls/hr 06/02/20 09:45 06/02/20 10:37 Nitroglycerin 50 Mg/250 Ml Bot IVPB 250 mls INF MARYELLEN Administration Protocol As Directed Cefepime HCl 1 gm/ Sodium 100 mls @ 200 mls/hr 06/03/20 21:00 06/08/20 08:55 Chloride IVPB 100 mls Q12HR MARYELLEN Administration Levofloxacin 750 mg/ Device 150 mls @ 100 mls/hr 06/03/20 14:00 06/08/20 14:21 IVPB 150 mls 1400 MARYELLEN Administration Lacosamide 100 mg 06/06/20 21:00 06/08/20 09:21 Lacosamide 50 Mg Tablet PO 100 mg BID MARYELLEN Administration Levothyroxine Sodium 25 mcg 06/02/20 06:00 06/08/20 05:20 Levothyroxine Sodium 25 Mcg Tab PO 25 mcg 0600 MARYELLEN Administration Methylprednisolone Sodium Succinate 40 mg 06/06/20 21:00 06/08/20 09:01 Methylprednisolone Sod Succ 40 Mg Vial IVP 40 mg BID MARYELLEN Administration Morphine Sulfate 4 mg 06/06/20 10:56 06/08/20 15:00 Morphine 4 Mg/Ml Vial SLOW IVP 4 mg Q4H PRN Administration Congestion Ondansetron HCl 4 mg 06/01/20 21:32 06/02/20 06:14 Ondansetron Pf 4 Mg/2 Ml Vial IVP 4 mg Q6H PRN Administration Nausea/Vomiting Sodium Chloride 10 ml 06/02/20 09:00 06/08/20 09:02 Flush - Normal Saline 10 Ml Syringe IVF 10 ml Q12HR MARYELLEN Administration Zinc Sulfate 220 mg 06/06/20 09:00 06/08/20 09:00 Zinc Sulfate 220 Mg Cap PER TUBE 220 mg DAILY MARYELLEN Administration - Exam General Appearance: NAD General - other findings: intubated but follow commands Eye: PERRL ENT: normocephalic atraumatic Neck: supple Heart: RRR Respiratory: CTAB Gastrointestinal: soft Extremities: no cyanosis Skin: normal turgor Hosp A/P - Plan Patient is unfortunate 60 years old gentleman who has significant past medical history for hypothyroidism, history of CVA, history of brain abscess, MS, seizure disorder, paraplegic and nonambulatory, [place] [facility] resident, who initially presented to the ED with headache, he was found hypertensive emergency. Patient was started on Cardene drip for blood pressure control. His COVID test later came back positive, and went into respiratory failure subsequently intubated and re-intubated on 06/05/2020. Acute hypoxic respiratory failure --reintubated on 06/05/20. cont steroid, empiric IV abx. --cont vent mgt as per pulmonology. Hopefully able to extubate soon COVID-19 pneumonia --s/p convalescent plasma. Management as above Hypertensive emergency --Patient initially required Cardene drip. He has been weaned off, however, blood pressures remain labile. --changed to Coreg, dose adjust. BP stable Type II NSTEMI --Lovenox dose adjust d/t bleeding from central line --add BB. Appreciate cardiology input Anemia of acute blood loss --s/p 1U PRBC transfusion. rpt Hb stable. Seizure disorder --resume home meds. Polypharmacy
[2020-06-08] MEDS: Ezetimibe 10 MG TAB PO SCH (20:35)
[2020-06-08] MEDS: Fenofibrate Nanocrystallized 145 MG TAB PO SCH (20:35)
[2020-06-08] MEDS: Atorvastatin Calcium 10 MG TAB PO SCH (20:36)
[2020-06-08] MEDS: Escitalopram Oxalate 10 mg Tablet PO SCH (20:36)
[2020-06-09] MEDS: PROVENTIL INHALER 6.7 G (200 INHALATIONS) INH SCH ×3 (00:29→14:00)
[2020-06-09] MEDS: Morphine 4 MG/ML VIAL SLOW IVP PRN ×4 (02:35→14:55)
[2020-06-09 03:56] LABS: Anion Gap 10 mmol/L (10-20); BUN (Urea Nitrogen) 56 mg/dL (8.4-25.7); Calc. Creatinine Clearance 178 mL/min (70-130); Calcium 8.5 mg/dL (7.8-10.44); Carbon Dioxide 33 mmol/L (23-31); Chloride 98 mmol/L (98-107); Glucose 119 mg/dL (80-115); Potassium 4.6 mmol/L (3.5-5.1); Sodium 136 mmol/L (136-145)
[2020-06-09 04:44] LABS: Band 9 % (5-11); Hemoglobin 7.4 g/dL (14.0-18.0); Lymphocytes 11 % (21-51); MDiff Complete? YES; Mean Corpuscular HGB CONC 31.1 g/dL (32.0-36.0); Mean Corpuscular Hemoglobin 28.8 pg (27.0-31.0); Mean Corpuscular Volume 92.7 fL (78.0-98.0); Mean Platelet Volume 7.1 fL (7.4-10.4); Monocytes 2 % (0-10); Myelocyte 2 % (0-0); Neutrophil 76 % (42-75); Platelet Count 306 thou/uL (130-400); Red Blood Cell (RBC) Count 2.55 mill/uL (4.70-6.10); White Blood Cell (WBC) Count 12.9 thou/uL (4.8-10.8)
[2020-06-09] MEDS: Levothyroxine Sodium 25 MCG TAB PO SCH (05:31)
--- NOTE | 2020-06-09 07:48 | RAD ---
Chest one view HISTORY: Dyspnea. Follow-up. COMPARISON: 06/08/2020. FINDINGS: Cardiac silhouette is magnified by projection. Pulmonary vasculature upper limits of normal . Mediastinum is midline. Lines and tubes unchanged in position. Right hemidiaphragm remains partially obscured. Left hemidiaphragm now more obscured. No lobar consolidation. No evidence of pneumothorax. IMPRESSION : Slight interval increase in left basilar infiltrate/pleural fluid. Right lung base is stable.
[2020-06-09] MEDS: Aspirin 81 mg Enteric Coated Tablet PO SCH (08:15)
[2020-06-09] MEDS: Ascorbic Acid 500 mg Chewable Tablet PER TUBE SCH (08:15)
[2020-06-09] MEDS: Dutasteride 0.5 MG CAP PO SCH (08:15)
[2020-06-09] MEDS: Carvedilol 6.25 MG TAB PO SCH (08:15)
[2020-06-09] MEDS: Lactinex Tablet PO SCH (08:15)
[2020-06-09] MEDS: Enoxaparin Sodium 40 MG/0.4 ML SYRINGE SC SCH (08:16)
[2020-06-09] MEDS: methylPREDNISolone Sod Succ 40 MG VIAL IVP SCH (08:16)
[2020-06-09] MEDS: carBAMazepine 200 MG TAB PO SCH (08:17)
[2020-06-09] MEDS: Cefepime 1 GM in Sodium Chloride 0.9% 100 ML IVPB SCH (08:19)
--- NOTE | 2020-06-09 11:06 | PRG ---
DATE OF SERVICE: 06/09/2020 SUBJECTIVE: Kareem Smith is a 60-year-old gentleman, intubated in the vent. We tried to cut back his rate on the CPAP, he is desatting. OBJECTIVE: VITAL SIGNS: Pulse 74, sats 100%, rate of 8, blood pressure 118/62. CHEST: Rhonchi, crackles. CARDIAC: Normal S1, S2. No gallops. ABDOMEN: No masses. LABORATORY DATA: PO2 62, pCO2 of 50, pH of 7.39. White count 12,000, H and H 7.4 and 23.6, platelet count 306. Lytes are normal. ASSESSMENT: Respiratory failure, coronary syndrome, berman-positive pneumonia, sleep apnea, hypoventilation syndrome. He is not weanable at this stage. It appears he is having problem with bouts of apnea on CPAP. Without any sedation on board, he is probably going to require trach at some stage. Continue antibiotics, supportive care. One-half hour of critical care time. Job ID: [id number]
[2020-06-09] MEDS: Zinc Sulfate 220 MG CAP PER TUBE SCH (12:46)
[2020-06-09 14:01] VITALS: BP 174/65
[2020-06-09] MEDS ORDERED: Morphine 4 MG/ML VIAL SLOW IVP PRN (14:12)
[2020-06-09] MEDS ORDERED: Hyoscyamine Sulfate SL 0.125 mg Tablet SL PRN (14:13)
[2020-06-09] MEDS ORDERED: Lorazepam 2 MG/ML VIAL SLOW IVP PRN (14:14)
[2020-06-09] MEDS ORDERED: Scopolamine 1.5 mg/72 hour Patch TOP SCH (14:15)
--- NOTE | 2020-06-09 14:23 | PDOC.FMACP ---
Advance Care Planning - Problem (1) Palliative care encounter Status: Acute Code(s): Z51.5 - ENCOUNTER FOR PALLIATIVE CARE (2) Acute respiratory failure with hypoxia Status: Acute Code(s): J96.01 - ACUTE RESPIRATORY FAILURE WITH HYPOXIA (3) NSTEMI (non-ST elevated myocardial infarction) Status: Acute Code(s): I21.4 - NON-ST ELEVATION (NSTEMI) MYOCARDIAL INFARCTION (4) Pneumonia due to COVID-19 virus Status: Acute Code(s): U07.1 - COVID-19; J12.82 - PNEUMONIA DUE TO CORONAVIRUS DISEASE 2018 (5) Seizures Status: Chronic Code(s): R56.9 - UNSPECIFIED CONVULSIONS - Note Participants: patient, family, palliative care Summary: Palliative care addressed Advanced Care Planning. The diagnosis, prognosis and goals of care were discussed. Appropriate forms and documentation to accomplish the goals of care were discussed. All questions were answered. Elected to be compassionately extubated, patient wishes family meeting with PC. Dr Velez and Dr Rosenberg notified. Refused hospice. Comfort medications ordered. Spiritual care aware. Emotional support. Please also refer to Palliative Care notes in note section. Time Spent (mins): 15
[2020-06-09 15:10] VITALS: TEMP 98
[2020-06-09] MEDS: Lacosamide 50 mg Tablet PO SCH (15:56)
--- NOTE | 2020-06-09 19:01 | PDOC.DS.DS ---
Provider - Provider Date of Admission: 06/01/20 21:35 Date of Discharge: 06/09/20 Admitting Provider: Hal Brown Consultations: Cardiology, Nephrology, Pulmonary Primary Care Physician: Ladonna Knapp MD Course - Hospital Course Hospital Course: Patient is unfortunate 60 years old gentleman who has significant past medical history for hypothyroidism, history of CVA, history of brain abscess, MS, seizure disorder, paraplegic and nonambulatory, [facility] resident, who initially presented to the ED with headache, he was found hypertensive emergency. Patient was started on Cardene drip for blood pressure control. His COVID test later came back positive, and went into respiratory failure subsequently intubated and re-intubated on 06/05/2020. Pt was able to wean down but unable to tolerate extubation. His sedations was weaned off, patient was alert and awake, follow commands. Pt wishes to have his tube out and understanding the prognosis. Palliative care team was consulted. Family notified. Decision was made for compassionate extubation as family members and pt are all in agreement. Pt at 1503. Procedures: Pt required intubation Resuscitation Status: 06/09/20 14:11 Resuscitation Status Routine Resuscitation Status: DNAR: NO Resuscitation Discussed with: Patient himself Additional comments: Wants to be compassionately extubated without CPR - Labs Lab Results: 06/09/20 03:03 06/09/20 03:03 Abnormal Lab Results - Last 48 hrs 06/08/20 03:49: BUN 46 H, Creatinine 0.63 L 06/08/20 03:49: WBC 14.5 H, RBC 2.84 L, Hgb 8.3 L, Hct 26.3 L, MCHC 31.4 L, MPV 7.1 L, Band Neuts % (Manual) 17 H, Lymphocytes % (Manual) 19 L, Myelocytes % 1 H, Nucleated RBCs # (Man) 1 H 06/08/20 11:30: Bicarbonate Actual 30.3 H, ABG pCO2 50.8 H, ABG O2 Sat (Measured) 91.4 L, ABG O2 Content 9.6 L, ABG Base Excess 4.8 H, ABG Hematocrit 22.0 L, ABG Hemoglobin 7.5 L, ABG Oxyhemoglobin 90.2 L, ABG Deoxyhemoglobin 8.5 H, A-a O2 Gradient 159.500 H, Sodium 133 L 06/09/20 03:03: Carbon Dioxide 33 H, BUN 56 H, Creatinine 0.63 L 06/09/20 03:03: WBC 12.9 H, RBC 2.55 L, Hgb 7.4 L, Hct 23.6 L, MCHC 31.1 L, MPV 7.1 L, Neutrophils % (Manual) 76 H, Lymphocytes % (Manual) 11 L, Myelocytes % 2 H - Physical Exam Vitals: Vital Signs (12 hours) Temp Pulse Resp BP Pulse Ox 06/09/20 14:00 80 20 174/65 H 06/09/20 13:00 98.0 F 06/09/20 12:00 16 06/09/20 11:22 76 157/72 H 06/09/20 10:00 15 06/09/20 09:00 97.9 F 84 193/106 H 06/09/20 08:15 187/94 H 06/09/20 08:00 12 100 Weight Admit Weight 225 lb Weight 225 lb 4.999 oz Most Recent Monitor Data Heart Rate from ECG 0 NIBP 174/85 NIBP BP-Mean 114 Respiration from ECG 0 SpO2 100 Physical Exam: The patient was seen and examined on the day of discharge. Problem - Problem (1) Acute respiratory failure with hypoxia Code(s): J96.01 - ACUTE RESPIRATORY FAILURE WITH HYPOXIA Status: Acute (2) History of CVA (cerebrovascular accident) Code(s): Z86.73 - PRSNL HX OF TIA (TIA), AND CEREB INFRC W/O RESID DEFICITS Status: Acute (3) Hypertensive emergency Code(s): I16.1 - HYPERTENSIVE EMERGENCY Status: Acute (4) Hypothyroid Code(s): E03.9 - HYPOTHYROIDISM, UNSPECIFIED Status: Acute (5) NSTEMI (non-ST elevated myocardial infarction) Code(s): I21.4 - NON-ST ELEVATION (NSTEMI) MYOCARDIAL INFARCTION Status: Acute (6) Pneumonia due to COVID-19 virus Code(s): U07.1 - COVID-19; J12.82 - PNEUMONIA DUE TO CORONAVIRUS DISEASE 2019 Status: Acute (7) Seizures Code(s): R56.9 - UNSPECIFIED CONVULSIONS Status: Chronic - Time spent with Patient (mins): 35 Plan - Discharge Medications Home Medications: Medication Instructions Recorded Confirmed Type Acetaminophen [Tylenol] 1,000 mg PO Q6HR PRN 03/30/20 06/04/20 History Albuterol Sulfate [Proair HFA] 2 puff INH Q6HR PRN 03/30/20 06/04/20 History Apixaban [Eliquis] 5 mg PO BID 03/30/20 06/04/20 History Artificial Tears [Tears Naturale 1 drop EA EYE QID 03/30/20 06/04/20 History Free] Azelastine HCl [Azelastine HCl 1 drop EA EYE BID 03/30/20 06/04/20 History 0.05% Ophth Soln] Baclofen 10 mg PO BID 03/30/20 06/04/[address] [Voltaren] 50 mg PO TID 03/30/20 06/04/20 History Docusate Calcium 1 cap PO DAILY 03/30/20 06/04/20 History Dutasteride [Avodart] 0.5 mg PO DAILY 03/30/20 06/04/20 History Eslicarbazepine Acetate [Aptiom] 1 tab PO DAILY 03/30/20 06/04/20 History Ezetimibe [Zetia] 10 mg PO HS 03/30/20 06/04/20 History Fenofibrate Nanocrystallized 145 mg PO HS 03/30/20 06/04/20 History [Tricor] Gabapentin 1 tab PO Q6HR 03/30/20 06/04/20 History HYDROcodone/Acetaminophen [[place] 1 tab PO Q6HR PRN 03/30/20 06/04/20 History 5-325 Tablet] Lacosamide [Vimpat] 100 mg PO BID 03/30/20 06/04/20 History Lactobacillus [Floranex] 1 tab PO BID 03/30/20 06/04/20 History Levothyroxine Sodium 25 mcg PO DAILY 03/30/20 06/04/20 History Meclizine HCl 1 tab PO Q6HR PRN 03/30/20 06/04/20 History Meclizine HCl [Medi-Meclizine] 25 mg PO Q8HR PRN 03/30/20 06/04/20 History Multivitamin 1 tab PO DAILY 03/30/20 06/04/20 History OXcarbazepine [Trileptal] 300 mg PO BID 03/30/20 06/04/20 History Petrolatum,White [Dermaphor 1 applic TOP Q24HR 03/30/20 06/04/20 History Ointment] Pravastatin Sodium 1 tab PO HS 03/30/20 06/04/20 History Restasis [Restasis Ophth Drops] 1 drop EA EYE BID 03/30/20 06/04/20 History Simethicone [Mi-Acid] 1 tab PO Q6HR PRN 03/30/20 06/04/20 History Verapamil HCl [Verapamil HCl ER] 1 cap PO HS 03/30/20 06/04/20 History carBAMazepine [Tegretol] 2 tab PO BID 03/30/20 06/04/20 History cloNIDine [Catapres] 2 tab PO TID 03/30/20 06/04/20 History Aspirin [Ecotrin Low Strength] 81 mg PO DAILY tab 04/01/20 06/04/20 Rx Chlorthalidone 12.5 mg PO DAILY 06/04/20 06/04/20 History Escitalopram Oxalate [Lexapro] 1 tab PO HS 06/04/20 06/04/20 History Ipratropium/Albuterol Sulfate 3 ml IH TID 06/04/20 06/04/20 History [DuoNeb] Lactulose 10 GM/15ML Oral [place] 30 ml PO Q8H PRN 06/04/20 06/04/20 History [Lactulose] Ondansetron HCl [Zofran] 1 tab PO Q8HR PRN 06/04/20 06/04/20 History Promethazine HCl [Promethegan] 1 supp RC Q8HR PRN 06/04/20 06/04/20 History Allergies: [place] Inhibitors Allergy (Verified 06/03/20 18:23) - Follow up Plan Referrals: Ladonna Knapp MD [Primary Care Provider] - Disposition: Quality - Care Measures CORE MEASURES:: N/A
--- NOTE | 2020-06-17 08:04 | PQF ---
CLINICAL DOCUMENTATION CLARIFICATION FORM: Dear : Jose Rosenberg MD Date / Time: 06/17/2020 Please exercise your independent, professional judgment in responding to the clarification form. 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 Thank You. To be completed by CDI/Coding staff for physician review: Present Clinical Indicators - Signs / Symptoms / Labs Results and Location in Medical Record [ x ] Na level (Please cite specific Na level.) Na-129,134,132 laboratory on 06/01, 06/04,06/05 [ x ] Severe deconditioning Progress note on 06/07 [ ] Coma / Seizures [ ] Present Risk Factors Results and Location in Medical Record [ x ] Nausea & vomitting H&P on 06/01 [ ] Polydipsia [ ] Dehydration [ ] Lung cancer [ ] Diabetes Insipidus [ ] Diuretics Present Treatments Results and Location in Medical Record [x] Sodium chloride1,000 ml IV Medication from 06/01 to 06/03 [ ] Series of electrolyte labs [ ] Fluid restriction [ ] CDS/Program Aide Group Work Signature: AAS Phone #: Date/Time: 06/17/2020 This is a permanent part of the Medical Record [facility]
== END 2020-06-09 16:38 | disposition expired | DRG 207 ==
LOC: ERS 17:56 → ERHOLD 21:35 → CCU 06-03 12:07
PROVIDERS: ADMIT Internal Medicine; ATTEND Family Medicine
PROC: 0D9670Z Drainage of Stomach with Drainage Device, Via Natural or Artificial Opening (ICD-10-PCS; 2020-06-01)
PROC: 02HV33Z Insertion of Infusion Device into Superior Vena Cava, Percutaneous Approach (ICD-10-PCS; 2020-06-01)
PROC: 0BH17EZ Insertion of Endotracheal Airway into Trachea, Via Natural or Artificial Opening (ICD-10-PCS; principal; 2020-06-03)
PROC: 5A1955Z Respiratory Ventilation, Greater than 96 Consecutive Hours (ICD-10-PCS; 2020-06-03)
DX: U07.1 COVID-19 (principal); I21.A1 Myocardial infarction type 2; J96.01 Acute respiratory failure with hypoxia; J12.82 Pneumonia due to coronavirus disease 2019; I16.1 Hypertensive emergency; G82.20 Paraplegia, unspecified; J44.0 Chronic obstructive pulmonary disease with (acute) lower respiratory infection; D62 Acute posthemorrhagic anemia; T82.838A Hemorrhage due to vascular prosthetic devices, implants and grafts, initial encounter; E87.1 Hypo-osmolality and hyponatremia; I10 Essential (primary) hypertension; E03.9 Hypothyroidism, unspecified; G40.909 Epilepsy, unspecified, not intractable, without status epilepticus; M19.90 Unspecified osteoarthritis, unspecified site; E78.00 Pure hypercholesterolemia, unspecified; E66.01 Morbid (severe) obesity due to excess calories; N40.0 Benign prostatic hyperplasia without lower urinary tract symptoms; Z51.5 Encounter for palliative care; Z88.8 Allergy status to other drugs, medicaments and biological substances; Z79.899 Other long term (current) drug therapy; Z79.890 Hormone replacement therapy; Z79.82 Long term (current) use of aspirin; Z79.51 Long term (current) use of inhaled steroids; Z79.01 Long term (current) use of anticoagulants; Z86.73 Personal history of transient ischemic attack (TIA), and cerebral infarction without residual deficits; Z68.35 Body mass index [BMI] 35.0-35.9, adult; Y83.9 Surgical procedure, unspecified as the cause of abnormal reaction of the patient, or of later complication, without mention of misadventure at the time of the procedure; Y92.239 Unspecified place in hospital as the place of occurrence of the external cause
CPT/HCPCS: 36415; 36430; 36600; 70450; 71045; 71275; 80048; 80053; 82553; 82565; 82805; 83880; 84484; 85007; 85014; 85018; 85025; 85027; 85049; 86850; 86900; 86901; 93005; 93010; 94002; 94003; 94640; 94660; 94760; J0360; J0692; J1650; J1956; J2060; J2270; J2405; J2765; J2920; J3010; J3490; J7050; J7620; P9016; P9045; Q9967; U0002